=== PATIENT | male | born 1995 | race Caucasian/White ===

== ENCOUNTER 2019-05-13 06:31 | Outpatient (CLI) | payer OTHER, SELFPAY ==
--- NOTE | ~2019-05-13 | MR_ITS ---
EXAMINATION: MR brain/brain stem wo con DATE: 05/13/2019 07:26 INDICATION: Headache. TECHNIQUE: Magnetic resonance imaging (MRI) of the brain and brainstem was performed without intraven ous contrast. Sequences included sagittal and axial T1-weighted FSE, axial diffusion-weighted FS EPI, axial T2*-weighted GRE, axial T2-weighted FLAIR Propeller, and axial T2-weighted Propeller. Apparent diffusion coefficient (ADC) maps were created. COMPARISON: Brain MRI 12/23/2011 FINDINGS: There is no intracranial hemorrhage, acute infarction, or abnormal intracranial mass lesion . The ventricles are normal in size. The orbits are normal. The paranasal sinuses are clear. The mast oid air cells are normal. IMPRESSION: 1. Normal brain. Reviewed, dictated and finalized at location A. ROBE ASSISTANT IMPRESSION: 1. Normal brain.
== END 2019-05-13 06:32 | disposition home or self-care (01) ==
PROVIDERS: PCP Internal Medicine; Visit Provider Physician Assistant
DX: R51 Headache (principal)
CPT/HCPCS: 70551

== ENCOUNTER 2019-05-22 12:36 | Inpatient (IN) | payer OTHER, SELFPAY ==
[2019-05-22] VITALS (8 sets, daily range): BP systolic 98–132; BP diastolic 57–87; PULSE 76–120; RESP 16–18; TEMP 36.1–37.1; O2SAT 97–100; BMI 29.5
--- NOTE | ~2019-05-22 | CT_ITS ---
EXAMINATION: CT abdomen pelvis w con DATE: 05/22/2019 14:12 INDICATION: Nausea and vomiting. Abdominal pain. Blood in stool. TECHNIQUE: Computed tomography (CT) of the abdomen and pelvis was performed with 100 mL Omnipaque 350 intravenous contrast. Automated exposure control and iterative reconstruction technique were employe d. The dose-length product was 591.36 mGy-cm. COMPARISON: None. FINDINGS: The visualized portions of the lung bases are clear without pneumonia or pleural effusion. The heart size is normal. No pericardial effusion. The liver, gallbladder, spleen, pancreas, adrenal glands, and kidneys are normal. There is a small left inguinal hernia containing fat. There are no di lated loops of bowel. The appendix is normal. There are no pathologically enlarged lymph nodes. There is no free intraperitoneal fluid. There are Schmorl's nodes at all included levels of the spine. IMPRESSION: 1. Small left inguinal hernia containing fat. Reviewed, dictated and finalized at location A. EVEL PROVIDER
[2019-05-22 13:28] LABS: Basophils Absolute Auto 0.1 K/mm3 (0.0-0.1); Basophils Percent Auto 0.9 % (0.2-1.2); Eosinophils Percent Auto 0.3 % (0-4.4); Hematocrit 31.7 % (42.0-52.0); Immature Granulocyte Absolute 0.06 K/mm3 (0.00-0.031); Immature Granulocyte Percent A 0.5 % (0-0.5); Lymphocytes Absolute Auto 2.32 K/mm3 (0.9-3.2); Lymphocytes Percent Auto 17.4 % (18.3-44.2); Mean Corpuscular HGB Conc 34.7 g/dl (32-36); Mean Corpuscular Hemoglobin 28.6 pg (26-34); Mean Corpuscular Volume 82.3 fl (80-100); Mean Platelet Volume 10.4 fl (7.4-10.4); Monocytes Absolute Auto 0.6 K/mm3 (0.1-0.6); Monocytes Percent Auto 4.4 % (2.6-8.5); Neutrophils Absolute Auto 10.2 K/mm3 (1.3-6.7); Neutrophils Percent Auto 76.5 % (45.5-73.1); Platelet Count Result 339 k/mm3 (150-375); Red Blood Count 3.85 M/mm3 (4.6-6.20); Red Cell Distribution Width 12.1 % (11.5-14.5); White Blood Count 13.3 K/mm3 (4.5-10.0)
[2019-05-22 13:40] LABS: Alanine Aminotransferase 35 U/L (4-50); Albumin Level 4.5 g/dL (3.5-5.1); Alkaline Phosphatase 48 U/L (38-126); Aspartate Amino Transferase 21 U/L (17-59); Bilirubin,Total 0.4 mg/dL (0.2-1.3); Blood Urea Nitrogen 24 mg/dL (9-20); Calcium 9.2 mg/dL (8.4-10.2); Carbon Dioxide 26 mmol/L (22-30); Chloride 103 mmol/L (98-107); Estimated CRCL calculation 127 ml/min; Estimated Glomerular Filt Rate > 60; Glucose 116 mg/dL (75-110); Potassium 4.5 mmol/L (3.4-5.0); Sodium 139 mmol/L (137-145)
[2019-05-22 13:43] LABS: Partial Thromboplastin Time 24.1 SECONDS (22.3-36.8)
[2019-05-22] MEDS: LACTATED RINGERS 1,000 ML 999 ML IV CONT (13:52)
[2019-05-22] MEDS: PANTOPRAZOLE SODIUM IV 40 MG VIAL IV PUSH ×2 (13:53→20:24)
[2019-05-22] MEDS: ONDANSETRON INJ 4 MG/2 ML VIAL IV PUSH (13:53)
--- NOTE | 2019-05-22 14:00 | ED.ABDPAIN ---
HPI - Abdominal Pain General Chief Complaint: GI Bleed <Israel Anguiano PA-C Last Filed: 05/22/19 15:49> Stated Complaint: Headache/vomiting <CECILE Ervin Last Filed: 05/22/19 15:49> Time Seen by Provider: 05/22/19 12:39 <CECILE Ervin Last Filed: 05/22/19 15:49> Source: patient <Israel CECILE Duggan Last Filed: 05/22/19 15:49> Mode of arrival: ambulatory <CECILE Ervin Last Filed: 05/22/19 15:49> Limitations: no limitations <Israel Anguiano PA-C Last Filed: 05/22/19 15:49> History of Present Illness HPI narrative: Patient is a 23-year-old male who presents to emergency department for evaluation of upper respiratory symptoms that began over the course the last 3 to 4 days with vomiting and loose stools patient notes over the last several days he has had melanotic stools patient denies any belly pain patient has been taking some ibuprofen off and on for headaches which his primary care doctor is been evaluating him for. On arrival patient denying any pain notes that this morning the symptoms are worse with nausea and vomiting and diarrhea. Patient notes chills sweats. Patient denies similar occurrence in the past. On arrival to emergency department patient resting comfortably in the room in no distress. Patient notes that he does get lightheaded and dizzy with position change <Israel Anguiano PA-C Last Filed: 05/22/19 15:49> Related Data Allergies/Adverse Reactions: Allergies Allergy/AdvReac Type Severity Reaction Status Date / Time ibuprofen AdvReac Severe bleeding Verified 06/10/19 14:06 ulcer <Israel Anguiano PA-C Last Filed: 05/22/19 15:49> Review of Systems Review of Systems: All systems reviewed & are unremarkable except as noted in HPI and below <CECILE Ervin Last Filed: 05/22/19 15:49> PMFSH Past Medical History Medical History: Medical History No significant medical problems <CECILE Ervin Last Filed: 05/22/19 15:49> Surgical History Surgical History: Surgical History History of ear surgery Multiple ear surgeries including eardrum reconstruction bilaterally and several tube placements. History of surgery on arm Right arm surgery x4 after open fracture as a child. <Israel Anguiano PA-C - Last Filed: 05/22/19 15:49> Family History Family History: Family History Father Family history of cardiovascular disease Hypertension CAD (coronary artery disease) Mother Hypertension <Israel Anguiano PA-C - Last Filed: 05/22/19 15:49> Social History Social History: Social History Social History: The patient lives in [place] with his parents. He does auto body repair. He designates his mother, Alexandrea, as his surrogate decision maker and he wishes to be a full code. He is a lifelong nonsmoker and denies alcohol and drug abuse. Spiritual care concerns: No Agree to blood products: Yes <Israel Anguiano PA-C - Last Filed: 05/22/19 15:49> Exam Narrative: Exam Narrative: GENERAL: Ill-appearing, well-nourished, and in no acute distress. HEAD: Normocephalic, atraumatic. EYES: PERRLA and EOMI. ENT: Nares clear, no rhinorrhea or epistaxis. Mucous membranes moist. Oropharynx without tonsillar hypertrophy exudate or other lesions. NECK: Supple. No adenopathy or masses. CHEST: Clear to auscultation. No respiratory distress. No wheezes rales or rhonchi HEART: Regular rate and rhythm. No murmur heard. Normal peripheral pulses. ABDOMEN: Soft, nontender, nondistended EXTREMITIES: Normal range of motion. No edema. SKIN: Warm, dry, no rash. NEURO: No focal deficits. Alert and oriented x3. Cranial nerves II through XII grossly inta
[2019-05-22 15:14] LABS: Lactic Acid Reflex 1.1 mmol/L (0.7-2.1)
[2019-05-22] MEDS: SODIUM CHLORIDE 0.9% IV 1,000 ML 999 ML IV CONT (15:29)
[2019-05-22 16:15] LABS: Hematocrit 26.3 % (42.0-52.0); Hemoglobin 9.1 g/dL (14.0-18.0)
[2019-05-22] MEDS: LACTATED RINGERS 1,000 ML 125 ML IV CONT (16:51)
--- NOTE | 2019-05-22 18:37 | WPDGICN ---
Assessment and Plan Assessment and plan (1) Melena: Code(s): K92.1 - Melena Status: Acute Assessment and Plan: he had near syncope with symptomatic gib, will keep npo and proceed with EGD in the morning- most likely bleeding ulcer. continue with high dose ppi bid, avoid nsaid's or aspirin (2) Acute blood loss anemia: Code(s): D62 - Acute posthemorrhagic anemia Status: Acute Assessment and Plan: monitor hb and transfuse if <7 (3) Coffee ground emesis: Code(s): K92.0 - Hematemesis Status: Acute Assessment and Plan: supportive care, iv fluids, monitor (4) Vertigo: Code(s): R42 - Dizziness and giddiness Status: Acute Assessment and Plan: probably from gib, mri brain negative GI Consult Note Consult date/time: 05/22/19 18:37 Reason for consult: melena HPI: Stiven Mcleod is a 23 year old male with lightheadedness and headache for almost 3 weeks for which he has seen his primary and had MRI brain recently that was normal. He has been nauseous and had coffee ground emesis, also diarrhea that was dark consistent with melena, he almost passed out when he was vomiting and dry heaving. He has taken ibuprofen 2-3 times a week for headache, never had EGD. Blood work showed hb 11 dropped to 9, bun 24. Started on iv protonix now, hemodynamically stable. Review of Systems Constitutional: Constitutional: Reports fatigue and Reports headache(s) Eyes: Eyes: Denies blurry vision ENT: Reports Normal hearing present, Denies headache(s) and Denies neck pain Cardiovascular: Cardiovascular: Denies chest pain and Denies dyspnea Respiratory: Respiratory: Denies dyspnea Gastrointestinal: Gastrointestinal: Reports melena, Reports nausea and Reports vomiting Genitourinary: Genitourinary: Denies dysuria Musculoskeletal: Musculoskeletal: Denies neck pain Integumentary/Breasts: Skin/Breast: Denies dry skin Neurologic: Reports Normal hearing present, Reports vertigo and Reports dizziness Psychiatric: Psychiatric: Denies anxiety Endocrine: Endocrine: Denies change in body appearance Hematologic/Lymphatic: Hematologic/Lymphatic: Denies easy bleeding Allergic/Immunologic: Allergic/Immunologic: Denies urticaria PMFSH Past Medical History Medical History (Updated 05/22/19 @ 18:42 by Timmy Merrill MD) Acute blood loss anemia Coffee ground emesis Melena Vertigo Surgical History Surgical History (Updated 05/22/19 @ 14:03 by Israel Anguiano PA-C) History of ear surgery Family History Family History (Updated 05/22/19 @ 16:47 by Alea Arredondo RN) Father Family history of cardiovascular disease Hypertension CAD (coronary artery disease) Mother Hypertension Social History Social History Smoking status: Never smoker Second hand tobacco smoke exposure: No Alcohol intake: never Substance use: never Gender identity (if verbalized by the patient): Male Spiritual care concerns: No Agree to blood products: Yes Meds Home Medications and Allergies Home Medications Medication Instructions Recorded Confirmed Type No Home Medications 05/12/19 05/22/19 History Allergies Allergy/AdvReac Type Severity Reaction Status Date / Time No Known Allergies Allergy Verified 05/12/19 16:18 Vital Signs Vital Signs - 24 hr 05/22/19 13:14 05/22/19 15:17 05/22/19 15:18 Temperature 97 F L Pulse Rate 120 H 89 116 H Respiratory Rate 18 Blood Pressure 112/87 118/64 106/82 Pulse Oximetry 100 05/22/19 15:20 05/22/19 15:59 05/22/19 16:30 Temperature Pulse Rate 112 H 91 84 Respiratory Rate 17 16 Blood Pressure 98/82 L 118/71 113/78 Pulse Oximetry 100 99 05/22/19 17:08 Temperature 98.6 F Pulse Rate 84 Respiratory Rate 18 Blood Pressure 132/72 Pulse Oximetry 100 Exam Const: General: comfortable and no acute distress HENMT:
--- NOTE | 2019-05-22 20:00 | PM.IMHP ---
H&P: HPI History of Present Illness Chief complaint: Bloody stools, vomiting, headache. Narrative: Stiven Mcleod is a pleasant, previously healthy 23-year-old male who presented to the emergency department earlier this afternoon from home for evaluation of bloody stools, vomiting, and headache. For approximately 1 months time he has had vertigo (describes the room spinning) occasionally associated with nausea and vomiting. He was seen by his primary care provider and a subsequent brain MRI came back unremarkable. He has also been having intermittent headaches for which he has been taking 600 milligrams of ibuprofen perhaps 2 times per week. Apparently he has had longstanding issues with his ears, and has been referred to an ENT with an upcoming appointment in the next week or so. In any regard, last evening he developed significant nausea and had several episodes of emesis that he describes to me as bright yellow in color. It is been documented by other providers, however, that he had coffee-ground emesis but he adamantly denies that to me. He has since been having dry heaves as he has not had anything to eat or drink since that time. This morning he had innumerable bouts of diarrhea that were dark in color. The patient snapped a photo of his stool and sent it to his mother, who reports that it was consistent with melena. She encouraged him to come to the emergency department today after he told her that he nearly collapsed today due to profound weakness. With further questioning, he does mention that his stools have been dark for several days, although they were not loose until today. With further questioning, he does mention an increase in belching and notes that he has vomited 2 to 3 times per week over the last month or so, mainly in the evening and at night. Interestingly, he has not had any epigastric or abdominal discomfort and specifically denies symptoms of GERD and indigestion. He believes he drinks the average amount of caffeine, typically either Dr. Pepper or iced tea. He denies significant alcohol use. No increase in stress recently. No chest pain or shortness of breath. Review of Systems Review of Systems: All systems reviewed & are unremarkable except as noted in HPI and below PMFSH Past Medical History Medical History (Updated 05/22/19 @ 23:01 by Trice Brito PA-C) No significant medical problems Surgical History Surgical History (Updated 05/22/19 @ 22:59 by Trice Brito PA-C) History of ear surgery Multiple ear surgeries including eardrum reconstruction bilaterally and several tube placements. History of surgery on arm Right arm surgery x4 after open fracture as a child. Family History Family History Father Family history of cardiovascular disease Hypertension CAD (coronary artery disease) Mother Hypertension Social History Social History (Updated 05/22/19 @ 23:00 by Trice Brito PA-C) Social History: The patient lives in [place] with his parents. He does auto body repair. He designates his mother, Alexandrea, as his surrogate decision maker and he wishes to be a full code. He is a lifelong nonsmoker and denies alcohol and drug abuse. Spiritual care concerns: No Agree to blood products: Yes Meds Home Medications and Allergies Home Medications Medication Instructions Recorded Confirmed Type No Home Medications 05/12/19 05/22/19 History Allergies Allergy/AdvReac Type Severity Reaction Status Date / Time No Known Allergies Allergy Verified 05/12/19 16:18 Vital Signs Vital Signs - 24 hr 05/22/19 13:14 05/22/19 15:17 05/22/19 15:18 Temperature 97 F L Pulse Rate 120 H 89 116 H Respiratory Rate 18 Blood Pressure 112/87 118/64 106/82 Pulse Oximetry 100 05/22/19 15:20 05/22/19 15:59 05/22/19 16:30 Temperature Pulse Rate 112 H 91 84 Respiratory Rate 17 16 Blood Pressure 98/
[2019-05-22 21:35] LABS: Hematocrit 22.5 % (42.0-52.0)
[2019-05-23] VITALS (9 sets, daily range): BP systolic 102–146; BP diastolic 42–87; PULSE 81–97; RESP 16–18; TEMP 36.6–37.1; O2SAT 96–100
[2019-05-23] MEDS: LACTATED RINGERS 1,000 ML 90 ML IV CONT ×2 (01:45→14:48)
[2019-05-23] MEDS: ACETAMINOPHEN 325 MG TABLET 650 MG PO ×2 (01:45→09:13)
[2019-05-23 01:47] LABS: Hemoglobin 7.7 g/dL (14.0-18.0)
[2019-05-23 06:51] LABS: Basophils Absolute Auto 0.1 K/mm3 (0.0-0.1); Basophils Percent Auto 0.8 % (0.2-1.2); Eosinophils Absolute Auto 0.2 K/mm3 (0-0.3); Eosinophils Percent Auto 2.3 % (0-4.4); Hematocrit 21.8 % (42.0-52.0); Hemoglobin 7.5 g/dL (14.0-18.0); Immature Granulocyte Absolute 0.03 K/mm3 (0.00-0.031); Immature Granulocyte Percent A 0.4 % (0-0.5); Lymphocytes Percent Auto 30.3 % (18.3-44.2); Mean Corpuscular HGB Conc 34.4 g/dl (32-36); Mean Corpuscular Hemoglobin 29.3 pg (26-34); Mean Corpuscular Volume 85.2 fl (80-100); Mean Platelet Volume 10.9 fl (7.4-10.4); Monocytes Absolute Auto 0.5 K/mm3 (0.1-0.6); Monocytes Percent Auto 6.9 % (2.6-8.5); Neutrophils Absolute Auto 4.3 K/mm3 (1.3-6.7); Neutrophils Percent Auto 59.3 % (45.5-73.1); Platelet Count Result 223 k/mm3 (150-375); Red Blood Count 2.56 M/mm3 (4.6-6.20); Red Cell Distribution Width 12.7 % (11.5-14.5); White Blood Count 7.3 K/mm3 (4.5-10.0)
[2019-05-23 07:15] LABS: Blood Urea Nitrogen 14 mg/dL (9-20); Calcium 8.4 mg/dL (8.4-10.2); Carbon Dioxide 25 mmol/L (22-30); Chloride 103 mmol/L (98-107); Estimated CRCL calculation 127 ml/min; Estimated Glomerular Filt Rate > 60; Glucose 93 mg/dL (75-110); Potassium 3.8 mmol/L (3.4-5.0); Sodium 137 mmol/L (137-145)
[2019-05-23] MEDS: LACTATED RINGERS 1,000 ML 150 ML IV CONT (07:29)
--- NOTE | 2019-05-23 07:30 | WPDANESEPPF ---
Anes - Initial Pre Proc Eval Procedure: Operation Date: 05/23/19 07:30 Proposed Procedures p Esophagogastroduodenoscopy - Timmy Merrill MD Date/Time: 05/23/19 08:37 Surgeon: Anel Pre Op Diagnosis: GI Bleed Pre Op Diagnosis: Bloody stools, vomiting, headache. Patient Data Age: 23 Gender: M Height: 5 ft 9 in Weight: 90.9 kg Last Vital Signs Temp 36.9 C 05/23/19 07:26 Pulse 97 05/23/19 08:22 Resp 16 05/23/19 08:22 BP 120/52 L 05/23/19 08:22 Pulse Ox 100 05/23/19 08:22 Allergies Allergy/AdvReac Type Severity Reaction Status Date / Time No Known Allergies Allergy Verified 05/23/19 07:23 Home Medications Medication Instructions Recorded Confirmed Type No Home Medications 05/12/19 05/23/19 History Laboratory Tests 05/22/19 05/22/19 05/22/19 13:20 13:20 13:20 WBC 13.3 K/mm3 H K/mm3 (4.5-10.0) RBC 3.85 M/mm3 L M/mm3 (4.6-6.20) Hgb 11.0 g/dL L g/dL (14.0-18.0) Hct 31.7 % L % (42.0-52.0) MCV 82.3 fl fl (80-100) MCH 28.6 pg pg (26-34) MCHC 34.7 g/dl g/dl (32-36) RDW 12.1 % % (11.5-14.5) Plt Count 339 k/mm3 k/mm3 (150-375) MPV 10.4 fl fl (7.4-10.4) Immature Gran % (Auto) 0.5 % % (0-0.5) Neut % (Auto) 76.5 % H % (45.5-73.1) Lymph % (Auto) 17.4 % L % (18.3-44.2) Garza % (Auto) 4.4 % % (2.6-8.5) Eos % (Auto) 0.3 % % (0-4.4) Baso % (Auto) 0.9 % % (0.2-1.2) Lymph # (Auto) 2.32 K/mm3 K/mm3 (0.9-3.2) Garza # (Auto) 0.6 K/mm3 K/mm3 (0.1-0.6) Eos # (Auto) 0.0 K/mm3 K/mm3 (0-0.3) Baso # (Auto) 0.1 K/mm3 K/mm3 (0.0-0.1) Abs Immat Gran (auto) 0.06 K/mm3 H K/mm3 (0.00-0.031) Absolute Neuts (auto) 10.2 K/mm3 H K/mm3 (1.3-6.7) Absolute Nucleated RBC 0.0 K/mm3 K/mm3 (0.0-0.012) Nucleated RBC % 0.0 % % (0.0-0.2) PT 13.0 Seconds Seconds (11.1-14.7) INR 1.0 APTT 24.1 SECONDS SECONDS (22.3-36.8) Sodium 139 mmol/L mmol/L (137-145) Potassium 4.5 mmol/L mmol/L (3.4-5.0) Chloride 103 mmol/L mmol/L (98-107) Carbon Dioxide 26 mmol/L mmol/L (22-30) BUN 24 mg/dL H mg/dL (9-20) Creatinine 0.80 mg/dL mg/dL (0.7-1.3) Estim Creat Clear Calc 127 ml/min ml/min Estimated GFR > 60 (59 - ) Glucose 116 mg/dL H mg/dL (75-110) Lactic Acid Calcium 9.2 mg/dL mg/dL (8.4-10.2) Total Bilirubin 0.4 mg/dL mg/dL (0.2-1.3) AST 21 U/L U/L (17-59) ALT 35 U/L U/L (4-50) Alkaline Phosphatase 48 U/L U/L (38-126) Total Protein 7.0 g/dL g/dL (6.3-8.2) Albumin 4.5 g/dL g/dL (3.5-5.1) Blood Type Antibody Screen 05/22/19 05/22/19 05/22/19 13:20 14:33 14:52 WBC RBC Hgb 9.1 g/dL L g/dL (14.0-18.0) Hct 26.3 % L % (42.0-52.0) MCV MCH MCHC RDW Plt Count MPV Immature Gran % (Auto) Neut % (Auto) Lymph % (Auto) Garza % (Auto) Eos % (Auto) Baso % (Auto) Lymph # (Auto) Garza # (Auto) Eos # (Auto) Baso # (Auto) Abs Immat Gran (auto) Absolute Neuts (auto) Absolute Nucleated RBC Nucleated RBC % PT INR APTT Sodium Potassium Chloride Carbon Dioxide BUN Creatinine Estim Creat Clear Calc Estimated GFR Glucose Lactic Acid 1.1 mmol/L mmol/L (0.7-2.1)
--- NOTE | 2019-05-23 07:50 | PM.IMPN ---
Progress Note: A&P Assessment and Plan (1) GI bleed: Code(s): K92.2 - Gastrointestinal hemorrhage, unspecified Status: Acute Assessment and Plan: Presumably upper GI bleed given melena. continue Protonix b.i.d. Plans for EGD in a.m. per Dr. Teran. (2) Acute blood loss anemia: Code(s): D62 - Acute posthemorrhagic anemia Status: Acute Assessment and Plan: Secondary to GI bleed. transfuse with a hgb of less than [address] Teran. Continue to closely monitor hgb (3) Vertigo: Code(s): R42 - Dizziness and giddiness Status: Acute Assessment and Plan: This has been an ongoing issue for at least 1 month. May very well be due to history of ear problems (no otoscope available at the time my exam). Unlikely that the vertigo is related to the blood loss, which just started in the last several days. Certainly that could be exacerbating his symptoms, however. Subjective Date/time seen: 05/23/19 07:50 patient admitted for bloody stool, vomiting, headache, nausea and dark colored. Endoscopy completed today by Dr. Teran. Patient does complain of right lower quadrant pain and sore throat post scope. He also continues to complain of dark stool and a persistent headache. Patient denies SOB, CP, palpitation, extremity numbness, lightheadness, dizziness, constipation, , or chills or fever. Patient will stay 1 more night to monitor his hemoglobin and hematocrit. He did not sleep well overnight I will give him asleep and pain medication. Review of Systems Constitutional: Constitutional: Reports difficulty sleeping ENT: Reports sore throat (Post EGD) Cardiovascular: Cardiovascular: Reports no additional cardiovascular complaints, Denies chest pain at rest, Denies dyspnea, Denies dyspnea on exertion and Denies orthopnea Respiratory: Respiratory: Reports no additional respiratory complaints, Denies hemoptysis, Denies pain with cough, Denies dyspnea and Denies dyspnea on exertion Gastrointestinal: Gastrointestinal: Reports melena, Denies nausea, Denies vomiting and Denies hematemesis Genitourinary: Genitourinary: Reports no additional male genitourinary complaints Musculoskeletal: Musculoskeletal: Reports no additional musculoskeletal complaints and Denies arthralgias Integumentary/Breasts: Skin/Breast: Reports system reviewed and no additional complaints, except as docu Neurologic: Denies Abnormal speech present, Denies confusion and Reports headache(s) Exam Const: General: cooperative, healthy appearing, comfortable and no acute distress Orientation/consciousness: patient oriented x3 Resp: Effort & Inspection: normal respiratory effort Auscultation: clear to auscultation bilaterally Cardio: Jugular venous distension: no JVD Rate: regular rate Peripheral pulses: Peripheral pulses 2+ throughout GI: Inspection: normal to inspection GI Palp: Yes abdominal tenderness (Right lower quad) : General: Yes bimanual renal exam normal bilaterally Neuro: General: oriented to person Cognition (Neuro): normal cognition Objective Data Vital Signs Vital Signs: Vital Signs - 24 hr 05/22/19 13:14 05/22/19 15:17 05/22/19 15:18 Temperature 36.1 C L Pulse Rate 120 H 89 116 H Respiratory Rate 18 Blood Pressure 112/87 118/64 106/82 Pulse Oximetry 100 05/22/19 15:20 05/22/19 15:59 05/22/19 16:30 Temperature Pulse Rate 112 H 91 84 Respiratory Rate 17 16 Blood Pressure 98/82 L 118/71 113/78 Pulse Oximetry 100 99 05/22/19 17:08 05/22/19 21:43 05/23/19 06:00 Temperature 37.0 C 37.1 C 36.8 C Pulse Rate 84 76 92 Respiratory Rate 18 18 18 Blood Pressure 132/72 132/57 L 104/64 Pulse Oximetry 100 97 99 05/23/19 07:26 Temperature 36.9 C Pulse Rate 92 Respiratory Rate 16 Blood Pressure 127/63 Pulse Oximetry 100 Intake/Output Intake/Output: Intake & Output 05/20/19 05/21/19 05/22/19 05/23/19 23:59 23:59 23:59 23:59
[2019-05-23] MEDS: EPINEPHrine INJ 1 MG/10 ML SYRINGE 8 MG XX (08:03)
[2019-05-23] MEDS: PANTOPRAZOLE SODIUM IV 40 MG VIAL IV PUSH ×2 (09:13→20:17)
[2019-05-23 10:19] LABS: Hematocrit 21.9 % (42.0-52.0); Hemoglobin 7.8 g/dL (14.0-18.0)
[2019-05-23] MEDS: ONDANSETRON INJ 4 MG/2 ML VIAL IV PUSH ×2 (11:12→17:35)
[2019-05-23] MEDS: TRAMADOL HCL 50 MG TABLET PO (17:34)
[2019-05-23 20:45] LABS: Hematocrit 20.5 % (42.0-52.0)
[2019-05-24] VITALS (8 sets, daily range): BP systolic 103–140; BP diastolic 51–74; PULSE 80–96; RESP 16–18; TEMP 36.3–37.1; O2SAT 97–100
[2019-05-24] MEDS: TRAMADOL HCL 50 MG TABLET PO ×3 (02:10→21:52)
[2019-05-24] MEDS: LACTATED RINGERS 1,000 ML 90 ML IV CONT ×2 (02:11→17:23)
[2019-05-24 06:10] LABS: Mean Corpuscular Hemoglobin 28.9 pg (26-34); Mean Corpuscular Volume 84.9 fl (80-100); Mean Platelet Volume 10.4 fl (7.4-10.4); Platelet Count Result 198 k/mm3 (150-375); Red Blood Count 2.39 M/mm3 (4.6-6.20); Red Cell Distribution Width 12.8 % (11.5-14.5); White Blood Count 6.7 K/mm3 (4.5-10.0)
[2019-05-24 06:13] LABS: Hemoglobin 6.9 g/dL (14.0-18.0)
[2019-05-24 06:14] LABS: Hematocrit 20.3 % (42.0-52.0)
[2019-05-24 06:23] LABS: Blood Urea Nitrogen 6 mg/dL (9-20); Calcium 8.3 mg/dL (8.4-10.2); Carbon Dioxide 28 mmol/L (22-30); Chloride 104 mmol/L (98-107); Estimated CRCL calculation 127 ml/min; Estimated Glomerular Filt Rate > 60; Glucose 92 mg/dL (75-110); Potassium 3.6 mmol/L (3.4-5.0); Sodium 137 mmol/L (137-145)
[2019-05-24] MEDS: ONDANSETRON INJ 4 MG/2 ML VIAL IV PUSH ×4 (07:29→21:58)
[2019-05-24] MEDS: SODIUM CHLORIDE 0.9% IV 250 ML 30 ML IV CONT (08:23)
[2019-05-24] MEDS: PANTOPRAZOLE SODIUM IV 40 MG VIAL IV PUSH ×2 (08:23→21:52)
--- NOTE | 2019-05-24 11:47 | WPDGIPROGNO ---
Progress Note: A&P Assessment and Plan (1) Duodenal ulcer with hemorrhage: Code(s): K26.4 - Chronic or unspecified duodenal ulcer with hemorrhage Status: Acute Assessment and Plan: treated endoscopically yesterday, continue with iv ppi bid and avoid nsaid's pending bx (rule out h pylori) (2) Acute blood loss anemia: Code(s): D62 - Acute posthemorrhagic anemia Status: Acute Assessment and Plan: will give one unit of prbc, no more bleeding now. then will need iron po (3) Headache: Qualifiers: Headache type: unspecified Headache chronicity pattern: unspecified pattern Intractability: not intractable Qualified Code(s): R51 - Headache Code(s): R51 - Headache Status: Acute Assessment and Plan: his main complain now, avoid nsaid's, other analgesics by primary he has been having headache for 3-4 weeks, mri brain negative (4) GI bleed: Qualifiers: GI bleed type/associated pathology: duodenal ulcer Qualified Code(s): K26.4 - Chronic or unspecified duodenal ulcer with hemorrhage Code(s): K92.2 - Gastrointestinal hemorrhage, unspecified Status: Acute (5) Coffee ground emesis: Code(s): K92.0 - Hematemesis Status: Acute (6) Melena: Code(s): K92.1 - Melena Status: Acute (7) Nausea and vomiting in adult: Code(s): R11.2 - Nausea with vomiting, unspecified Status: Acute Assessment and Plan: continue zofran prn, will add carafate to see if will help Subjective Date/time seen: 05/24/19 11:47 Interval history: no more melena but still with nauseous and vomiting however denies coffee ground. Hb 6.9 today, also complaining of headache Review of Systems Review of Systems: All systems reviewed & are unremarkable except as noted in HPI and below Exam Const: General: comfortable and no acute distress HENMT: General nose exam: Normal nares present Eyes: General: appearance normal, both eyes and all related structures Neck: Neck: no JVD Resp: Auscultation: clear to auscultation bilaterally Cardio: Rate: regular rate Rhythm: regular rhythm GI: Inspection: non-distended GI Palp: Yes Soft to palpation Skin: General skin exam: normal color Neuro: General: gait normal Speech: normal speech Extrem: General: normal to inspection Psych: Mental Status: mental status grossly normal Objective Data Vital Signs Vital Signs: Vital Signs - 24 hr 05/23/19 14:00 05/23/19 21:21 05/24/19 06:00 Temperature 98.6 F 98.7 F 98.5 F Pulse Rate 97 81 82 Respiratory Rate 16 16 16 Blood Pressure 114/54 L 102/42 L 115/59 L Pulse Oximetry 98 100 100 05/24/19 08:09 05/24/19 08:31 05/24/19 09:31 Temperature 98.7 F 97.4 F L 98.4 F Pulse Rate 96 86 80 Respiratory Rate 18 17 18 Blood Pressure 137/67 126/65 124/60 Pulse Oximetry 99 99 99 05/24/19 10:31 05/24/19 11:20 Temperature 98.1 F 98.1 F Pulse Rate 88 88 Respiratory Rate 18 18 Blood Pressure 135/62 140/67 Pulse Oximetry 99 98 Intake/Output Intake/Output: Intake & Output 05/21/19 05/22/19 05/23/19 05/24/19 23:59 23:59 23:59 23:59 Intake Total 1100 2610 1720 Output Total 0 550 Balance 1100 2060 1720 Meds/Results Medications: Active Medications Generic Name Dose Route Start Last Admin Trade Name Freq PRN Reason Stop Dose Admin Acetaminophen 1,000 mg 05/23/19 11:18 Tylenol Tablet PO Q6H PRN Mild Pain (1-3) or Fever Hydrocodone Bitart/Acetaminophen 1 tab 05/23/19 11:18 05/23/19 20:21 [place] 5-325 Mg PO 1 tab Q6H PRN Administration Pain Rated 7-10 Lactated Ringer's 1,000 mls @ 90 mls/hr 05/22/19 15:50 05/24/19 11:26 Lr - Lactated Ringers Iv IV CONT 90 mls/hr .Q11H7M BRIAN Infusion Sodium Chloride 250 mls @ 30 mls/hr 05/24/19 06:33 05/24/19 08:23 Normal Saline Iv IV CONT 05/24/19 14:52 30 mls/hr .Q8H20M STA Administration Acetaminophen 1,000 mg in 100 mls @
--- NOTE | 2019-05-24 11:52 | PM.IMPN ---
Progress Note: A&P Assessment and Plan (1) GI bleed: Qualifiers: GI bleed type/associated pathology: duodenal ulcer Qualified Code(s): K26.4 - Chronic or unspecified duodenal ulcer with hemorrhage Code(s): K92.2 - Gastrointestinal hemorrhage, unspecified Status: Acute Assessment and Plan: -----secondary to duodenal ulcers. Patient's hemoglobin is still low and now that he is dizzy and has a headache 1 unit of blood was transfused. We will see how he does with that. Hgb appears stable and will monitor. Continue protonix BID. Pt father had ulcers. h pylori bx pending (2) Acute blood loss anemia: Code(s): D62 - Acute posthemorrhagic anemia Status: Acute Assessment and Plan: -----Secondary to GI bleed. (3) Vertigo: Code(s): R42 - Dizziness and giddiness Status: Acute Assessment and Plan: -----This has been an ongoing issue for at least 1 month and worsend with this blood loss. MRI done outpatient that looked okay. may benefit from seeing ENT outpatient. (4) Duodenal ulcer with hemorrhage: Code(s): K26.4 - Chronic or unspecified duodenal ulcer with hemorrhage Status: Acute Assessment and Plan: -----see above. continue PPI and carafate. Time Spent With Patient Time with patient: 25 - 35 minutes Subjective Date/time seen: 05/24/19 11:52 Interval history: Patient is a 23-year-old male here for GI bleed with duodenal ulcers who was seen today. Mother at bedside during interview and exam. Patient states that his main complaint today is a headache with nausea. He says he feels weak when he gets up and a little tired. His nausea is preventing him from eating a ton. He has not had any more melena since yesterday but is going to try to have a bowel movement later today. He does feel little dizzy at times. He denies chest pain, shortness of breath, fevers, chills, vomiting or leg edema. Review of Systems Review of Systems: All systems reviewed & are unremarkable except as noted in HPI and below Exam Narrative: Exam Narrative: General: Well developed well nourished patient in NAD HEENT: normocephalic Neck: supple Neuro: Alert and oriented x4. Cranial nerves 2-12 intact. Equal strength upper lower extremities 5/5 CV:RRR Resp:CTA--was not taking deep breaths initially Abd: Soft, non distended. No pain to palpation. Positive bowel sounds Extremities: No swelling, erythema, or pain to palpation. Objective Data Vital Signs Vital Signs: Vital Signs - 24 hr 05/23/19 14:00 05/23/19 21:21 05/24/19 06:00 Temperature 98.6 F 98.7 F 98.5 F Pulse Rate 97 81 82 Respiratory Rate 16 16 16 Blood Pressure 114/54 L 102/42 L 115/59 L Pulse Oximetry 98 100 100 05/24/19 08:09 05/24/19 08:31 05/24/19 09:31 Temperature 98.7 F 97.4 F L 98.4 F Pulse Rate 96 86 80 Respiratory Rate 18 17 18 Blood Pressure 137/67 126/65 124/60 Pulse Oximetry 99 99 99 05/24/19 10:31 05/24/19 11:20 Temperature 98.1 F 98.1 F Pulse Rate 88 88 Respiratory Rate 18 18 Blood Pressure 135/62 140/67 Pulse Oximetry 99 98 Intake/Output Intake/Output: Intake & Output 05/21/19 05/22/19 05/23/19 05/24/19 23:59 23:59 23:59 23:59 Intake Total 1100 2610 1720 Output Total 0 550 Balance 1100 2060 1720 Meds/Results Medications: Active Medications Generic Name Dose Route Start Last Admin Trade Name Freq PRN Reason Stop Dose Admin Acetaminophen 1,000 mg 05/23/19 11:18 Tylenol Tablet PO Q6H PRN Mild Pain (1-3) or Fever Hydrocodone Bitart/Acetaminophen 1 tab 05/23/19 11:18 05/23/19 20:21 [place] 5-325 Mg PO 1 tab Q6H PRN Administration Pain Rated 7-10 Lactated Ringer's 1,000 mls @ 90 mls/hr 05/22/19 15:50 05/24/19 11:26 Lr - Lactated Ringers Iv IV CONT 90 mls/hr .[id number] BRIAN Infusion Sodium Chloride 250 mls @ 30 mls/hr 05/24/19 06:33 05/24/19 08:23 Normal Saline Iv IV CONT
[2019-05-24 12:42] LABS: Hematocrit 24.6 % (42.0-52.0); Hemoglobin 8.3 g/dL (14.0-18.0)
[2019-05-24] MEDS: SUCRALFATE SUSP 100 MG/ML 10 ML UDC 1000 MG PO ×2 (15:55→21:52)
[2019-05-25] VITALS (10 sets, daily range): BP systolic 123–138; BP diastolic 58–76; PULSE 76–110; RESP 16–18; TEMP 36.6–37.7; O2SAT 96–100
[2019-05-25] MEDS: LACTATED RINGERS 1,000 ML 90 ML IV CONT (04:02)
[2019-05-25] MEDS: TRAMADOL HCL 50 MG TABLET PO ×3 (04:02→17:19)
[2019-05-25 06:38] LABS: Blood Urea Nitrogen 6 mg/dL (9-20); Calcium 8.3 mg/dL (8.4-10.2); Carbon Dioxide 28 mmol/L (22-30); Chloride 102 mmol/L (98-107); Estimated CRCL calculation 144 ml/min; Estimated Glomerular Filt Rate > 60; Glucose 98 mg/dL (75-110); Potassium 3.4 mmol/L (3.4-5.0); Sodium 136 mmol/L (137-145)
[2019-05-25] MEDS: SUCRALFATE SUSP 100 MG/ML 10 ML UDC 1000 MG PO ×4 (06:44→21:30)
--- NOTE | 2019-05-25 09:05 | WPDGIPROGNO ---
Progress Note: A&P Assessment and Plan (1) Duodenal ulcer with hemorrhage: Code(s): K26.4 - Chronic or unspecified duodenal ulcer with hemorrhage Status: Acute Assessment and Plan: treated endoscopically, continue with iv ppi bid and avoid nsaid's rapid karol-test negative for H pylori, awaiting on final biopsy (2) Acute blood loss anemia: Code(s): D62 - Acute posthemorrhagic anemia Status: Acute Assessment and Plan: appropriate response after 1 unit of prbc will need iron supplement monitor for signs of bleeding (3) Headache: Qualifiers: Headache chronicity pattern: unspecified pattern Headache type: unspecified Intractability: not intractable Qualified Code(s): R51 - Headache Code(s): R51 - Headache Status: Acute Assessment and Plan: by primary team, do not use nsaid's he is having persistent headache now mri brain negative (4) GI bleed: Qualifiers: GI bleed type/associated pathology: duodenal ulcer Qualified Code(s): K26.4 - Chronic or unspecified duodenal ulcer with hemorrhage Code(s): K92.2 - Gastrointestinal hemorrhage, unspecified Status: Acute (5) Coffee ground emesis: Code(s): K92.0 - Hematemesis Status: Acute (6) Melena: Code(s): K92.1 - Melena Status: Acute (7) Nausea and vomiting in adult: Code(s): R11.2 - Nausea with vomiting, unspecified Status: Acute Assessment and Plan: better with ppi and carafate, will advance his diet Subjective Date/time seen: 05/25/19 09:05 Interval history: no more nausea and he is tolerating liquid diet, no more bleeding. His main issue is persistent headache, he says that tramadol is not working Review of Systems Constitutional: Constitutional: Denies headache(s) and Denies weakness Eyes: Eyes: Denies blurry vision ENT: Reports Normal hearing present, Denies headache(s) and Denies neck pain Cardiovascular: Cardiovascular: Denies chest pain and Denies dyspnea Respiratory: Respiratory: Denies dyspnea Gastrointestinal: Gastrointestinal: Reports no additional gastrointestinal complaints Genitourinary: Genitourinary: Denies dysuria Musculoskeletal: Musculoskeletal: Denies neck pain Integumentary/Breasts: Skin/Breast: Denies dry skin Neurologic: Reports Normal hearing present, Reports headache(s) and Denies weakness Psychiatric: Psychiatric: Denies anxiety Endocrine: Endocrine: Denies change in body appearance Hematologic/Lymphatic: Hematologic/Lymphatic: Denies easy bleeding Allergic/Immunologic: Allergic/Immunologic: Denies urticaria Exam Const: General: comfortable and no acute distress HENMT: General nose exam: Normal nares present Eyes: General: appearance normal, both eyes and all related structures Neck: Neck: no JVD Resp: Auscultation: clear to auscultation bilaterally Cardio: Rate: regular rate Rhythm: regular rhythm GI: Inspection: non-distended GI Palp: Yes Soft to palpation Skin: General skin exam: normal color Neuro: General: gait normal Speech: normal speech Extrem: General: normal to inspection Psych: Mental Status: mental status grossly normal Objective Data Vital Signs Vital Signs: Vital Signs - 24 hr 05/24/19 09:31 05/24/19 10:31 05/24/19 11:20 Temperature 98.4 F 98.1 F 98.1 F Pulse Rate 80 88 88 Respiratory Rate 18 18 18 Blood Pressure 124/60 135/62 140/67 Pulse Oximetry 99 99 98 05/24/19 14:00 05/24/19 22:00 05/25/19 06:00 Temperature 98.2 F 98.2 F 98.1 F Pulse Rate 89 82 76 Respiratory Rate 18 18 18 Blood Pressure 139/74 103/51 L 124/62 Pulse Oximetry 97 98 98 Intake/Output Intake/Output: Intake & Output 05/22/19 05/23/19 05/24/19 05/25/19 23:59 23:59 23:59 23:59 Intake Total 1100 2610 3310 2100 Output Total 0 550 Balance 1100 2060 3310 2100 Meds/Results Medications: Active Medications Generic Name Dose Route Start Last Admin Tra
[2019-05-25] MEDS: ONDANSETRON INJ 4 MG/2 ML VIAL IV PUSH (09:06)
[2019-05-25] MEDS: PANTOPRAZOLE SODIUM IV 40 MG VIAL IV PUSH ×2 (09:06→21:30)
[2019-05-25 10:12] LABS: Hematocrit 23.4 % (42.0-52.0); Hemoglobin 8.1 g/dL (14.0-18.0)
--- NOTE | 2019-05-25 14:15 | PM.IMPN ---
Progress Note: A&P Assessment and Plan (1) GI bleed: Qualifiers: GI bleed type/associated pathology: duodenal ulcer Qualified Code(s): K26.4 - Chronic or unspecified duodenal ulcer with hemorrhage Code(s): K92.2 - Gastrointestinal hemorrhage, unspecified Status: Acute Assessment and Plan: -----secondary to duodenal ulcers. Patient is steady at 8.1 today but he appears symptomatic as he still lightheaded, dizzy, and his heart race when he sits up or walks to the bathroom. For this reason I will give him another unit of blood. Continue to monitor hemoglobin. Continue protonix BID. Pt father had ulcers. h pylori bx pending (2) Acute blood loss anemia: Code(s): D62 - Acute posthemorrhagic anemia Status: Acute Assessment and Plan: -----Secondary to GI bleed. Iron started today (3) Vertigo: Code(s): R42 - Dizziness and giddiness Status: Acute Assessment and Plan: -----This has been an ongoing issue for at least 1 month and worsend with this blood loss. MRI done outpatient that looked okay. may benefit from seeing ENT outpatient. (4) Duodenal ulcer with hemorrhage: Code(s): K26.4 - Chronic or unspecified duodenal ulcer with hemorrhage Status: Acute Assessment and Plan: -----see above. continue PPI and carafate. (5) Headache: Qualifiers: Headache type: unspecified Headache chronicity pattern: unspecified pattern Intractability: not intractable Qualified Code(s): R51 - Headache Code(s): R51 - Headache Status: Acute Assessment and Plan: -----patient had a persistent headache yesterday which was worse this morning but improved with the tramadol. Because of his persistent headache, I will consult Neurology. He had an outpatient MRI for this reason a few weeks back as well. No worrisome neurological exam findings Subjective Date/time seen: 05/25/19 14:16 Interval history: Patient is a 23-year-old male here for GI bleed with duodenal ulcers who was seen today with family at bedside. Pt stats he feels better after a unit of blood yesterday but still feels lightheaded and feels like his heart is racing when he moves or sits up. He is eating and drinking okay and his abdominal pain is better. He has not had a bowel movement and feels a bit constipated. Exam Narrative: Exam Narrative: General: Well developed well nourished patient in NAD HEENT: normocephalic Neck: supple Neuro: Alert and oriented x4. Cranial nerves 2-12 intact. Equal strength upper lower extremities 5/5 CV:RRR Resp:CTA Abd: Soft, non distended. No pain to palpation. Positive bowel sounds Extremities: No swelling, erythema, or pain to palpation. Objective Data Vital Signs Vital Signs: Vital Signs - 24 hr 05/24/19 22:00 05/25/19 06:00 Temperature 98.2 F 98.1 F Pulse Rate 82 76 Respiratory Rate 18 18 Blood Pressure 103/51 L 124/62 Pulse Oximetry 98 98 Intake/Output Intake/Output: Intake & Output 05/22/19 05/23/19 05/24/19 05/25/19 23:59 23:59 23:59 23:59 Intake Total 1100 2610 3310 2580 Output Total 0 550 Balance 1100 2060 3310 2580 Meds/Results Medications: Active Medications Generic Name Dose Route Start Last Admin Trade Name Freq PRN Reason Stop Dose Admin Acetaminophen 1,000 mg 05/23/19 11:18 Tylenol Tablet PO Q6H PRN Mild Pain (1-3) or Fever Hydrocodone Bitart/Acetaminophen 1 tab 05/23/19 11:18 05/25/19 09:06 [place] 5-325 Mg PO 1 tab Q6H PRN Administration Pain Rated 7-10 Ferrous Sulfate 324 mg 05/26/19 08:00 Ferrous Sulfate PO DAILY@0800 [facility] Ondansetron HCl 4 mg 05/22/19 15:50 05/25/19 09:06 Zofran Inj IV PUSH 4 mg Q4H PRN Administration Nausea Pantoprazole Sodium 40 mg 05/22/19 21:00 05/25/19 09:06 Protonix Iv IV PUSH 40 mg Q12HR BRIAN Administration Polyethylene Glycol 17 gm 05/25/19 13:25
[2019-05-25] MEDS: SODIUM CHLORIDE 0.9% IV 250 ML 30 ML IV CONT (17:52)
[2019-05-26] VITALS: PULSE 81
[2019-05-26 04:00] VITALS: PULSE 64
[2019-05-26] MEDS: SUCRALFATE SUSP 100 MG/ML 10 ML UDC 1000 MG PO (05:53)
[2019-05-26 06:00] VITALS: BP 127/75; PULSE 82; RESP 16; TEMP 36.7; O2SAT 99
[2019-05-26 06:55] LABS: Hematocrit 27.1 % (42.0-52.0); Hemoglobin 9.5 g/dL (14.0-18.0)
[2019-05-26 07:13] LABS: Blood Urea Nitrogen 6 mg/dL (9-20); Calcium 8.6 mg/dL (8.4-10.2); Carbon Dioxide 29 mmol/L (22-30); Chloride 103 mmol/L (98-107); Estimated CRCL calculation 127 ml/min; Estimated Glomerular Filt Rate > 60; Glucose 95 mg/dL (75-110); Potassium 3.6 mmol/L (3.4-5.0); Sodium 138 mmol/L (137-145)
[2019-05-26 08:00] VITALS: PULSE 87
[2019-05-26] MEDS: PANTOPRAZOLE SODIUM IV 40 MG VIAL IV PUSH (11:46)
[2019-05-26] MEDS: FERROUS SULFATE 324 MG TABLET PO (11:47)
--- NOTE | 2019-05-26 17:54 | PM.DS ---
DS: Diagnosis Admitting Diagnosis Admitting Diagnosis: Melena Discharge Diagnosis (1) GI bleed: Qualifiers: GI bleed type/associated pathology: duodenal ulcer Qualified Code(s): K26.4 - Chronic or unspecified duodenal ulcer with hemorrhage Code(s): K92.2 - Gastrointestinal hemorrhage, unspecified Status: Acute Assessment and Plan: Date of Service 05/26/19 Mr. Mcleod is a 23 yo male who presented with blood in stool, vomiting, headache, and dizziness. H&H were as low as 6.9, 20.3% for which he received 2 units packed RBC. GI was consulted and he underwent EGD by Dr Teran which revealed a duodenal ulcer. He was maintained on protonix BID, carafate, and oral iron supplementation. Hgb remained low but stable at 9.5 day of discharge. He has been experiencing vertigo and headaches for at least a few weeks. Headaches worsened during this stay likely secondary to anemia of acute blood loss. PCP recently obtained outpatient MRI brain which was normal. Neurology was consulted and tramadol helped his headache. He had previously been using ibuprofen for his headaches and he was educated on the importance of avoiding NSAIDs in light of his ulcer. He also reported he had an ENT appointment coming up regarding his vertigo. He was hemodynamically stable for discharge 05/26/19 with instructions to follow up with Dr Mota, Dr Teran(GI) and Dr Calderon (Neuro). Consultations: GI - Dr Teran Neuro - Dr Calderon (2) Acute blood loss anemia: Code(s): D62 - Acute posthemorrhagic anemia Status: Acute Assessment and Plan: Secondary to duodenal ulcer. Started on oral iron supplements. Monitor CBC outpatient. (3) Vertigo: Code(s): R42 - Dizziness and giddiness Status: Acute Assessment and Plan: Has been intermittent for weeks. He has an upcoming appointment with ENT. No dizziness on day of discharge. (4) Duodenal ulcer with hemorrhage: Code(s): K26.4 - Chronic or unspecified duodenal ulcer with hemorrhage Status: Acute Assessment and Plan: Seen on EGD. Started on PPI and carafate, avoid NSAIDs. Follow up with Dr Teran. (5) Headache: Qualifiers: Headache type: unspecified Headache chronicity pattern: unspecified pattern Intractability: not intractable Qualified Code(s): R51 - Headache Code(s): R51 - Headache Status: Acute Assessment and Plan: Intermittent and have also been going on for at least a few weeks. Likely worsened in the setting of acute blood loss anemia. Outpatient MRI brain obtained by PCP 05/13/19 is normal. Neurology consulted, follow up with Dr Calderon. Tramadol helped, Dr Calderon recommended continuing tramadol. DS: Summary Time Spent with Patient Time attestation: Total time spent providing and/or coordinating discharge services: 35 minutes Exam Narrative: Exam Narrative: General: Male resting supine in bed in no acute distress. HEENT: Normocephalic, EOMI, oral mucosa moist. Cardiovascular: Rate and rhythm are regular. Respiratory: Lungs clear to auscultation all alba. Abdomen: Soft, non-tender, non-distended, bowel sounds present. Extremities: Peripheral pulses intact. No edema. Neuro: No focal neurological deficits. Speech is clear. DS: Data Data Completed and Pending Completed studies during hospitalization: Pending at discharge 05/23/19 07:59 Surgical [PTH] Routine Labs on day of discharge: Labs from last 24 hours 05/26/19 05/26/19 05/25/19 06:35 06:35 15:16 Hgb 9.5 L Hct 27.1 L Sodium 138 Potassium 3.6 Chloride 103 Carbon Dioxide 29 BUN 6 L Creatinine 0.80 Estim Creat Clear Calc 127 Estimated GFR > 60 Glucose 95 Calcium 8.6 Crossmatch See Detail Procedures/Treatmen
--- NOTE | 2019-05-27 06:15 | CONS_ITS ---
DATE OF CONSULTATION: HISTORY: This 23 years old right-handed male has been admitted to [facility] through the emergency room for the complaint of bloody stool with vomiting and headache of 1 month's duration in addition to the history of no significant medical problem except chronic recurrent headache. In the past, he has undergone ear surgery and surgeries on arm subsequent to a fracture as a child. 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 He is not taking any home medication. ALLERGIES: HE IS NOT ALLERGIC TO ANY MEDICATION. ? Evaluation revealed him to be afebrile with rapid pulse, respiration 18, blood pressure 112/87, pulse ox 100. Initial examination was fairly unremarkable. He was found to have subsequently melena and has been seen by the digital solutions architect. Neuro consultation has been obtained because of ongoing complaint of recurrent headaches for which he has not received any prophylactic therapies, but headaches are about 3 to 4 times per week. PHYSICAL EXAMINATION: GENERAL: He is awake, alert, cooperative, in no obvious acute distress. HEENT: Head normocephalic with no cranial bruit. Ear, nose, throat exam normal. NECK: Supple with no cervical bruit. No thyromegaly. No lymphadenopathy. HEART: Regular. LUNGS: Clear. ABDOMEN: Soft. NEUROLOGICAL: He has normal mental status. Normal speech. Pupils round and regular. [place] of vision full. Extraocular movements full. Face symmetrical. Tongue midline. Motor examination revealed him to have normal strength and tone proximally and distally in both upper and lower extremities. He has 1+ deep tendon reflexes in upper and lower extremities. Plantars are downgoing. There is no evidence of sensory or cerebellar deficit. The patient's mother was in the room. He was advised that we would like to see him in a couple of weeks for the treatment of the migraine because he will need the prophylactic as well as the abortive therapy, but because of the recent GI problem, I will be reluctant to start him on any medication, so once he is stable, discharged from here, he can return to our office for the followup, then treat him accordingly. GADIEL PEREZ M.D. SLOTTER OPERATOR HELPER SLOTTER OPERATOR HELPER D I MT: Terell
== END 2019-05-26 13:17 | disposition home or self-care (01) | DRG 378 ==
LOC: ANHED 15:51 → ANH3MEDSUR 16:04
PROVIDERS: Emergency Medicine Emergency Medical Services; Internal Medicine Gastroenterology; Nurse Practitioner; Physician Assistant; Admitting Provider Internal Medicine; Emergency Provider Emergency Medicine; PCP Internal Medicine; Visit Provider Physician Assistant
PROC: 0DJ08ZZ Inspection of Upper Intestinal Tract, Via Natural or Artificial Opening Endoscopic (ICD-10-PCS; CPT 43235; principal; 2019-05-23 07:30)
DX: K26.4 Chronic or unspecified duodenal ulcer with hemorrhage (principal); D62 Acute posthemorrhagic anemia; K29.70 Gastritis, unspecified, without bleeding; K92.0 Hematemesis; R51 Headache; K21.9 Gastro-esophageal reflux disease without esophagitis; R42 Dizziness and giddiness
CPT/HCPCS: 36415; 36430; 74177; 80048; 80053; 83605; 85014; 85018; 85025; 85027; 85610; 85730; 86850; 86900; 86901; 86923; 88305; 96361; 96365; 96374; 96375; 96376; 99285; A9270; C9113; G0378; J0131; J0171; J2405; J2704; J7030; J7050; J7120; P9016; Q9967

== ENCOUNTER 2019-05-29 13:58 | Outpatient (CLI) | payer OTHER, SELFPAY ==
[2019-05-29 15:42] LABS: Hematocrit 31.3 % (42.0-52.0); Hemoglobin 10.4 g/dL (14.0-18.0); Mean Corpuscular HGB Conc 33.2 g/dl (32-36); Mean Corpuscular Volume 84.1 fl (80-100); Mean Platelet Volume 11.1 fl (7.4-10.4); Platelet Count Result 348 k/mm3 (150-375); Red Blood Count 3.72 M/mm3 (4.6-6.20); Red Cell Distribution Width 14.3 % (11.5-14.5); White Blood Count 8.5 K/mm3 (4.5-10.0)
== END 2019-05-29 13:59 | disposition home or self-care (01) ==
LOC: ANHLAB 14:00
PROVIDERS: PCP Internal Medicine; Visit Provider Physician Assistant
DX: D62 Acute posthemorrhagic anemia (principal)
CPT/HCPCS: 36415; 85027

== ENCOUNTER 2019-06-18 16:06 | Outpatient (CLI) | payer OTHER, SELFPAY ==
[2019-06-18 16:27] LABS: Hematocrit 38.7 % (42.0-52.0); Mean Corpuscular HGB Conc 33.6 g/dl (32-36); Mean Corpuscular Hemoglobin 28.3 pg (26-34); Mean Corpuscular Volume 84.1 fl (80-100); Mean Platelet Volume 10.6 fl (7.4-10.4); Platelet Count Result 280 k/mm3 (150-375); Red Cell Distribution Width 13.2 % (11.5-14.5); White Blood Count 6.6 K/mm3 (4.5-10.0)
== END 2019-06-18 16:07 | disposition home or self-care (01) ==
PROVIDERS: PCP Internal Medicine; Visit Provider Internal Medicine Gastroenterology
DX: D62 Acute posthemorrhagic anemia (principal)
CPT/HCPCS: 36415; 85027

== ENCOUNTER 2019-10-26 07:24 | Emergency (ER) | payer OTHER, SELFPAY ==
[2019-10-26 07:26] VITALS: BP 146/80; PULSE 75; RESP 17; TEMP 36.2; O2SAT 100
[2019-10-26 07:55] VITALS: BP 129/87; PULSE 58; RESP 14; TEMP 36.6; O2SAT 99
--- NOTE | 2019-10-26 07:57 | ED.WOUNDLAC ---
HPI - Wound/Laceration General Chief Complaint: Wound/Laceration Stated Complaint: hand lac Time Seen by Provider: 10/26/19 07:54 History of Present Illness HPI narrative: Patient presents to the ED with a cut on his left index finger. He cut it at 7 AM while making breakfast. The injury was with a kitchen knife. His tetanus is up-to-date. He gauges the pain at 6 out of 10. He does not want any pain medicine for the injury. He has not been sick recently. He has a history of surgery on his right arm, he has a history of multiple surgeries on his ears, and he had a surgery on his stomach for a bleeding ulcer. He is not on any prescription medicine. He does not smoke cigarettes, does not drink alcohol, and does not do drug. He is a daycare assistant. Onset (ago): hour(s) Extremity Location: Left: hand Place: home Patient tetanus UTD: Yes Context: accidental Associated symptoms: none Related Data Home Medications Medication Instructions Recorded Confirmed No Home Medications 10/26/19 10/26/19 Allergies Allergy/AdvReac Type Severity Reaction Status Date / Time ibuprofen AdvReac Severe bleeding Verified 10/26/19 07:25 ulcer Review of Systems Review of Systems: Narrative: CONSTITUTIONAL: Denies fever, chills, or sweats. EYES: Denies visual changes, redness, or discharge. ENT: Denies rhinorrhea, congestion, sore throat, or otalgia. CARDIOVASCULAR: Denies chest pain, palpitations, or edema. RESPIRATORY: Denies cough or dyspnea. GASTROINTESTINAL: Denies abdominal pain, nausea, vomiting, or diarrhea. GENITOURINARY: Denies dysuria or hematuria. SKIN: Denies rash or itching. Laceration on the left index finger MUSCULOSKELETAL: Denies back pain, joint pain, or myalgia. NEUROLOGIC: Denies headache, numbness, or weakness. PSYCHIATRIC: Denies anxiety or depression. [facility] Past Medical History Medical History Duodenal ulcer with hemorrhage Headache Surgical History Surgical History History of ear surgery Multiple ear surgeries including eardrum reconstruction bilaterally and several tube placements. History of surgery on arm Right arm surgery x4 after open fracture as a child. Social History Social History (Updated 10/26/19 @ 08:00 by Maia Mcghee MD) Social History: The patient lives in [place] with his parents. He does auto body repair. He designates his mother, Alexandrea, as his surrogate decision maker and he wishes to be a full code. He is a lifelong nonsmoker and denies alcohol and drug abuse. Smoking status: Never smoker Alcohol intake: never Substance use: never Gender identity (if verbalized by the patient): Male Spiritual care concerns: No Agree to blood products: Yes Course Vital Signs Vital signs: Vital Signs Temperature 97.1 F L 10/26/19 07:26 Pulse Rate 75 10/26/19 07:26 Respiratory Rate 17 10/26/19 07:26 Blood Pressure 146/80 H 10/26/19 07:26 Pulse Oximetry 100 10/26/19 07:26 Temperature 97.9 F 10/26/19 07:55 Pulse Rate 58 L 10/26/19 07:55 Respiratory Rate 14 10/26/19 07:55 Blood Pressure 129/87 10/26/19 07:55 Pulse Oximetry 99 10/26/19 07:55 Procedures Laceration Laceration 1: Date: 10/26/19 Time: 08:46 Site: upper extremity Side (If applicable): left Size (cm): 3 Description: flap Depth: simple, single layer Local Anesthetic: lidocaine 1% Amount of anesthesia used (mL): 2 Pre-repair: wound explored, irrigated and minor debridement ====== Skin Level ====== Skin layer closed with: nylon Size (cm): 5-0 Number of sutures: 5 Technique: simple, interrupted ====== Subcutaneous Layer ====== ====== Muscle Layer ====== ====== Tendon Layer ====== Dressing: Gauze and tape Discharge Plan Discharge Clinical Impre
[2019-10-26 09:02] VITALS: BP 126/64; PULSE 60; RESP 14; O2SAT 99
== END 2019-10-26 09:03 | disposition home or self-care (01) ==
PROVIDERS: Emergency Provider Emergency Medicine; PCP Internal Medicine
DX: S61.211A Laceration without foreign body of left index finger without damage to nail, initial encounter (principal); W26.0XXA Contact with knife, initial encounter; Y93.G1 Activity, food preparation and clean up
CPT/HCPCS: 12002; 99282

== ENCOUNTER 2019-11-02 19:05 | Emergency (ER) | payer OTHER, SELFPAY ==
[2019-11-02 19:20] VITALS: BP 132/79; PULSE 78; RESP 16; TEMP 36.7; O2SAT 99
--- NOTE | 2019-11-02 19:21 | ED.GENADULT ---
HPI - General Adult General Chief complaint: Wound/Laceration Stated complaint: Stitches removal Time Seen by Provider: 11/02/19 19:21 Source: patient Mode of arrival: ambulatory Limitations: no limitations History of Present Illness HPI narrative: 24-year-old male patient presents to the [facility] with request for suture removal. Patient states he cut his left index finger with a knife about 7 days ago and had sutures placed [facility]. Patient states he was not placed on antibiotics at that time and just has been washing the area with a damp cloth. Patient denies any fevers, body aches or chills. Denies any discharge coming from the wound. Related Data Home Medications Medication Instructions Recorded Confirmed No Home Medications 10/26/19 10/26/19 Allergies Allergy/AdvReac Type Severity Reaction Status Date / Time ibuprofen AdvReac Severe bleeding Verified 11/02/19 19:25 ulcer Review of Systems Review of Systems: Narrative: CONSTITUTIONAL: Denies fever, chills, or sweats. EYES: Denies visual changes, redness, or discharge. ENT: Denies rhinorrhea, congestion, sore throat, or otalgia. CARDIOVASCULAR: Denies chest pain, palpitations, or edema. RESPIRATORY: Denies cough or dyspnea. GASTROINTESTINAL: Denies abdominal pain, nausea, vomiting, or diarrhea. GENITOURINARY: Denies dysuria or hematuria. SKIN: Denies rash or itching. Positive sutures in place on left index finger time 7 days MUSCULOSKELETAL: Denies back pain, joint pain, or myalgia. NEUROLOGIC: Denies headache, numbness, or weakness. PSYCHIATRIC: Denies anxiety or depression. [facility] Past Medical History Medical History Duodenal ulcer with hemorrhage Headache Surgical History Surgical History History of ear surgery Multiple ear surgeries including eardrum reconstruction bilaterally and several tube placements. History of surgery on arm Right arm surgery x4 after open fracture as a child. Family History Family History Father Family history of cardiovascular disease Hypertension CAD (coronary artery disease) Mother Hypertension Social History Social History Social History: The patient lives in [place] with his parents. He does auto body repair. He designates his mother, Alexandrea, as his surrogate decision maker and he wishes to be a full code. He is a lifelong nonsmoker and denies alcohol and drug abuse. Smoking status: Never smoker Alcohol intake: never Substance use: never Gender identity (if verbalized by the patient): Male Spiritual care concerns: No Agree to blood products: Yes Comments At the time of my signature I agree with nursing past medical history, surgical, social, and family history. There is no relevant family history pertinent to the presenting complaint. Exam Narrative: Exam Narrative: GENERAL: Well-appearing, well-nourished, and in no acute distress. HEAD: Normocephalic, atraumatic. EYES: PERRLA and EOMI. ENT: Nares clear, no rhinorrhea or epistaxis. Mucous membranes moist. NECK: Supple. No lymphadenopathy CHEST: Clear to auscultation. No respiratory distress. HEART: Regular rate and rhythm. No murmur heard. Normal peripheral pulses. ABDOMEN: Soft, nontender, nondistended, normal active bowel sounds. EXTREMITIES: Normal range of motion. No edema. SKIN: Warm, dry, no rash. Patient has [address] to left index finger. The wound is sort of a crescent-shaped that goes over the lateral side of the MIP joint. Her is no gaping, discharge, surrounding erythema or tenderness. Patient does have excellent range of motion of the finger. Patient has good cap refill. The wound seems to be healing well. NEURO: No focal deficits. Alert and oriented x3. Course Vital Signs
== END 2019-11-02 19:38 | disposition home or self-care (01) ==
PROVIDERS: Emergency Provider Nurse Practitioner Family; PCP Internal Medicine
DX: Z48.02 Encounter for removal of sutures (principal)
CPT/HCPCS: 99211; G0463

== ENCOUNTER 2020-09-15 18:35 | Outpatient (CLI) | payer OTHER, SELFPAY ==
--- NOTE | ~2020-09-15 | XR_ITS ---
XR wrist RT min 3V DATE: 09/15/2020 18:51 INDICATION: Medial pain after changing tire 2 days ago TECHNIQUE: 4 views COMPARISON: None FINDINGS: No fracture or dislocation, periosteal reaction or bone destruction. Joint spaces are prese rved. No erosive change or chondrocalcinosis. IMPRESSION: Negative Reviewed, dictated and finalized at location A. IMPRESSION: Negative
== END 2020-09-15 18:36 | disposition home or self-care (01) ==
LOC: ANHIMG 18:38
PROVIDERS: PCP Internal Medicine; Visit Provider Internal Medicine
DX: M25.531 Pain in right wrist (principal)
CPT/HCPCS: 73110

== ENCOUNTER 2021-01-04 20:00 | Emergency (ER) | payer OTHER, SELFPAY ==
[2021-01-04] VITALS (18 sets, daily range): BP systolic 127–150; BP diastolic 81–97; PULSE 67–92; RESP 12–21; TEMP 36.5–36.8; O2SAT 97–99
--- NOTE | ~2021-01-04 | XR_ITS ---
EXAMINATION: XR chest 2V EXAM DATE: 01/04/2021 21:05 INDICATION: SOB With Sternal Chest Pressure X 2 Days,. TECHNIQUE: Frontal and lateral projections of the chest obtained and reviewed. FINDINGS: The lungs are clear. There are no pleural effusions. The cardiomediastinal silhouette is within normal limits. There is no pneumothorax suspected. The bones and soft tissues are unremarkab le. IMPRESSION: Normal chest x-ray exam. Reviewed, dictated and finalized at location A. IMPRESSION: Normal chest x-ray exam.
--- NOTE | 2021-01-04 20:37 | ECG_ITS ---
Measurements Intervals [place] Rate: 70 P: 34 IL: 146 QRS: 18 QRSD: 105 T: -16 QT: 356 QTc: 386 Interpretive Statements SINUS RHYTHM BORDERLINE ST-T WAVE ABNORMALITY- INFERIOR LEADS BORDERLINE ECG Electronically Signed On 01-05-2021 11:22:27 CDT by Aj Rosales D.O.
[2021-01-04 21:42] LABS: Basophils Absolute Auto 0.1 K/mm3 (0.0-0.1); Basophils Percent Auto 0.8 % (0.2-1.2); Eosinophils Absolute Auto 0.2 K/mm3 (0-0.3); Eosinophils Percent Auto 2.2 % (0-4.4); Hematocrit 40.1 % (42.0-52.0); Hemoglobin 14.7 g/dL (14.0-18.0); Immature Granulocyte Absolute 0.03 K/mm3 (0.00-0.031); Immature Granulocyte Percent A 0.3 % (0-0.5); Lymphocytes Absolute Auto 2.92 K/mm3 (0.9-3.2); Lymphocytes Percent Auto 29.3 % (18.3-44.2); Mean Corpuscular HGB Conc 36.7 g/dl (32-36); Mean Corpuscular Hemoglobin 29.8 pg (26-34); Mean Corpuscular Volume 81.3 fl (80-100); Mean Platelet Volume 10.5 fl (7.4-10.4); Monocytes Absolute Auto 0.7 K/mm3 (0.1-0.6); Neutrophils Percent Auto 60.4 % (45.5-73.1); Platelet Count Result 282 k/mm3 (150-375); Red Blood Count 4.93 M/mm3 (4.6-6.20); Red Cell Distribution Width 12.2 % (11.5-14.5)
[2021-01-04 21:50] LABS: Anion Gap 13 mmol/L (8-16); Blood Urea Nitrogen 11 mg/dL (9-20); Calcium 9.3 mg/dL (8.4-10.2); Carbon Dioxide 21 mmol/L (22-30); Chloride 106 mmol/L (98-107); Estimated CRCL calculation 164 ml/min; Estimated Glomerular Filt Rate > 60; Glucose 114 mg/dL (65-110); Potassium 3.5 mmol/L (3.4-5.0); Sodium 140 mmol/L (137-145)
[2021-01-04 23:13] LABS: Troponin I < 0.012 ng/mL (0.000-0.034)
--- NOTE | 2021-01-04 23:33 | ED.SOB ---
HPI - SOB/Dyspnea General Chief Complaint: Shortness of Breath/Dyspnea Stated Complaint: shortness of breath Time Seen by Provider: 01/04/21 22:04 Source: patient Mode of arrival: ambulatory Limitations: no limitations History of Present Illness MD elicited complaint: shortness of breath Onset (ago): week(s) (1) Context: other (occurs at rest and with activity, shortness of breath, feels like his breath catches and then incr RR for minutes at a time.) Timing: intermittent Severity: moderate Exacerbating factors: nothing, exertion, movement and talking Relieving factors: nothing Associated symptoms: chest pain and lightheadedness Treatment prior to arrival: none Related Data Home oxygen amount: none Home Medications Medication Instructions Recorded Confirmed No Home Medications 01/04/21 01/04/21 Allergies Allergy/AdvReac Type Severity Reaction Status Date / Time ibuprofen AdvReac Severe bleeding Verified 01/04/21 22:25 ulcer Review of Systems Review of Systems: CONSTITUTIONAL: no fever, no weight loss, no confusion EYES: no vision changes, no eye pain ENT: no rhinorrhea, no sore throat, no difficulty swallowing CARDIOVASCULAR: chest pain with shortness of breath, no leg edema, no palpitations RESPIRATORY: no cough, positive for shortness of breath, no hemoptysis GASTROINTESTINAL: no abdominal pain, no nausea, no vomiting, no diarrhea GENITOURINARY: no flank pain, no dysuria, no hematuria SKIN: no rash, no jaundice MUSCULOSKELETAL: no back pain, no trauma. NEUROLOGIC: No headache, no dizziness, no focal weakness PSYCHIATRIC: No hallucinations, no suicidal ideation PMFSH Past Medical History Medical History Duodenal ulcer with hemorrhage Headache Surgical History Surgical History History of ear surgery Multiple ear surgeries including eardrum reconstruction bilaterally and several tube placements. History of surgery on arm Right arm surgery x4 after open fracture as a child. Family History Family History Father Family history of cardiovascular disease Hypertension CAD (coronary artery disease) Mother Hypertension Social History Social History Social History: The patient lives in [place] with his parents. He does auto body repair. He designates his mother, Alexandrea, as his surrogate decision maker and he wishes to be a full code. He is a lifelong nonsmoker and denies alcohol and drug abuse. Smoking status: Never smoker Alcohol intake: never Substance use: never Gender identity (if verbalized by the patient): Male Spiritual care concerns: No Agree to blood products: Yes Exam Narrative: General: alert, afebrile, answering all questions appropriately Head: normocephalic, atraumatic Eyes: EOMI bilaterally, anicteric, no injection ENT: moist mucous membranes, oropharynx patent, no rhinorrhea Neck: supple, trachea midline, no JVD Chest: equal chest rise bilaterally, no chest wall trauma noted Lungs: clear to auscultation bilaterally, respirations unlabored CV: regular rate, no ROME B, calf size equal bilaterally Abd: soft, non-distended, non-tender, no rebound, no gaurding, negative [place]'s EXT: no deformity noted, moving all extremities equally Skin: warm, dry, no pallor Neuro: alert, oriented x 3; CN 2-12 grossly intact, no dysarthria Psych: affect appropriate, though content normal Course Course Emergency Course: All labs normal, no evidence of infection, blood pressure is somewhat high but patient is somewhat anxious. EKG with normal sinus rhythm troponin negative after 1 week of chest pain with shortness of breath chest x-ray is normal mediastinum is normal no pericardial effusion noted no cardiomegaly. Patient has follow-up with primary care docto
== END 2021-01-04 23:45 | disposition home or self-care (01) ==
PROVIDERS: Emergency Medicine; Emergency Provider Emergency Medicine; PCP Internal Medicine
DX: R06.02 Shortness of breath (principal)
CPT/HCPCS: 36415; 71046; 80048; 84484; 85025; 93005; 99284

== ENCOUNTER → 2021-01-07 01:17 | Outpatient (CLI) | payer OTHER, SELFPAY ==
[2021-01-07 18:06] LABS: SARS-CoV-2 RNA PCR Negative
== END ==
PROVIDERS: PCP Internal Medicine; Visit Provider Internal Medicine
DX: R06.00 Dyspnea, unspecified (principal); Z20.822 Contact with and (suspected) exposure to COVID-19
CPT/HCPCS: C9803; U0003; U0005

== ENCOUNTER 2021-01-31 13:41 | Outpatient (CLI) | payer OTHER, SELFPAY ==
--- NOTE | 2021-01-31 13:53 | ECHO_ITS ---
Patient Info Name: Stiven Mcleod Age: 25 years : 1995 Gender: Male Ht: 69 in Wt: 220 lbs BSA: 2.24 m2 HR: 64 bpm BP: 141 / 90 mmHg Technical Quality: Good Exam Date: 01/31/2021 2:04 PM Exam [facility] Patient Status: Outpatient Admit Date: 01/31/2021 Staff Ordering Physician: Maxx Mota DO Squeezer Operator: Roxana Luis RDCS Attending Provider: Maxx Mota DO Referring Physician: Svetlana FAULKNER; Exam Type: CA echo doppler color flow Study Info Indications R06.00 - Dyspnea, unspecified Complete two-dimensional, color flow and Doppler transthoracic echocardiogram is performed. Summary 1. Complete two-dimensional, color flow and Doppler transthoracic echocardiogram is performed. 2. Left ventricular chamber dimension is normal. 3. Left ventricular systolic function is normal, estimated at 55-60%. 4. The left ventricular diastolic function is normal. 5. E/e' 5 is not elevated. 6. Global longitudinal strain is normal at -17.0%. 7. There is trace mitral valve regurgitation. 8. No pulmonary hypertension, estimated pulmonary arterial systolic pressure is 19 mmHg. Left Ventricle E/e' 5 is not elevated. Global longitudinal strain is normal at -17.0%. Left ventricular chamber dimension is normal. Left ventricular systolic function is normal, estimated at 55-60%. The left ventricular diastolic function is normal. Right Ventricle Right ventricular chamber dimension is normal. Right ventricular systolic function is normal. Left Atria Left atrial chamber dimension is normal. Right Atria Right atrial chamber dimension is normal. Aortic Valve The aortic valve is trileaflet. There is no aortic valve stenosis. There is no aortic valve regurgitation. Pulmonic Valve There is trace pulmonic regurgitation. Mitral Valve There is no mitral valve stenosis. There is trace mitral valve regurgitation. Tricuspid Valve There is no tricuspid valve regurgitation. No pulmonary hypertension, estimated pulmonary arterial systolic pressure is 19 mmHg. Pericardium/Pleural There is no pericardial effusion. Inferior Vena Cava Normal inferior vena cava with >50% collapse upon inspiration consistent with normal right atrial pressure, 5 mmHg. Aorta The aortic root size at the sinus of Valsalva is normal. Left Ventricular Outflow Tract Name Value Normal LVOT 2D LVOT Diameter 2.0 cm LVOT Doppler LVOT Peak Gradient 5 mmHg LVOT Mean Gradient 3 mmHg LVOT VTI 20 cm LVOT VTI/AV VTI Ratio 0.8 LVOT Stroke Volume 62 ml LVOT CO 4.3 l/min LVOT CI 1.9 l/min/m2 Pulmonic Valve Name Value Normal RVOT Doppler
== END 2021-01-31 13:42 | disposition home or self-care (01) ==
LOC: ANHCARD 13:44
PROVIDERS: PCP Internal Medicine; Visit Provider Internal Medicine
DX: R06.00 Dyspnea, unspecified (principal)
CPT/HCPCS: 93225; 93226; 93306

== ENCOUNTER 2021-11-24 18:37 | Emergency (ER) | payer OTHER, SELFPAY ==
[2021-11-24 18:50] VITALS: BP 148/93; PULSE 98; RESP 16; TEMP 35.9; O2SAT 100
--- NOTE | 2021-11-24 19:12 | ED.UPPEXIN ---
HPI - Extremity Injury (Upper) General Chief Complaint: Extremity Injury, Upper Stated Complaint: Left Arm Burn Time Seen by Provider: 11/24/21 19:05 Source: patient, RN notes reviewed and old records reviewed Mode of arrival: ambulatory Limitations: no limitations History of Present Illness HPI narrative: 26 year old male who presents to [facility] care with complaints of burn to the left inner elbow region which occurred from an exhaust pipe last evening when he was working on his car. Patient has 9cm X4cm red tissue area to inner left elbow with 2 blister noted in red tissue area, one 1cm diameter and other 1.5cm diameter. Patient denies acute pain to burn region has not taken any OTC medications. MD complaint: injury to: left and elbow (inner elbow burn) Onset (ago): day(s) (last night) Severity scale (1-10): 3 Associated symptoms: denies other symptoms Related Data Allergies Allergy/AdvReac Type Severity Reaction Status Date / Time ibuprofen AdvReac Severe bleeding Verified 11/24/21 18:47 ulcer Review of Systems Review of Systems: CONSTITUTIONAL: Denies fever, chills, or sweats. EYES: Denies visual changes, redness, or discharge. ENT: Denies rhinorrhea, congestion, sore throat, or otalgia. CARDIOVASCULAR: Denies chest pain, palpitations, or edema. RESPIRATORY: Denies cough or dyspnea. GASTROINTESTINAL: Denies abdominal pain, nausea, vomiting, or diarrhea. GENITOURINARY: Denies dysuria or hematuria. SKIN: Denies rash or itching.positive for burn to left inner aspect of left elbow region with blisters X2 MUSCULOSKELETAL: Denies back pain, joint pain, or myalgia. NEUROLOGIC: Denies headache, numbness, or weakness. PSYCHIATRIC: Denies anxiety or depression. [facility] Past Medical History Medical History (Updated 11/25/21 @ 00:01 by Andrew Hawthorne) Duodenal ulcer with hemorrhage Headache Surgical History Surgical History History of ear surgery Multiple ear surgeries including eardrum reconstruction bilaterally and several tube placements. History of surgery on arm Right arm surgery x4 after open fracture as a child. Family History Family History Father Family history of cardiovascular disease Hypertension CAD (coronary artery disease) Mother Hypertension Social History Social History (Updated 11/24/21 @ 19:53 by Belem Fox NP) Social History: The patient lives in [place] with his parents. He does auto body repair. He designates his mother, Alexandrea, as his surrogate decision maker and he wishes to be a full code. He is a lifelong nonsmoker and denies alcohol and drug abuse. Smoking status: Never smoker Alcohol intake: never Substance use: never Living arrangements: with family Gender identity (if verbalized by the patient): Male Spiritual care concerns: No Agree to blood products: Yes Comments At time of signature, agree with nursing past medical, surgical, social and family history. There is no relevant family history pertinent to the presenting complaint Exam Narrative: GENERAL: Well-appearing, well-nourished, and in no acute distress. HEAD: Normocephalic, atraumatic. EYES: PERRLA and EOMI. ENT: Nares clear, no rhinorrhea or epistaxis. Mucous membranes moist. TMs with some scarring throat pink with no swelling. NECK: Supple. No lymphadenopathy CHEST: Clear to auscultation. No respiratory distress. SaO2 100% on room air HEART: Regular rate and rhythm. No murmur heard. Normal peripheral pulses. ABDOMEN: Soft, nontender, nondistended, normal active bowel sounds. EXTREMITIES: Normal range of motion. No edema. SKIN: Warm, dry, no rash. Burn to left inner elbow region which occurred last p.m. tissue red with 2 blisters noted no drainage or acute warmth of wound. Patient denies any acute pain to site NEURO: No focal deficits. Alert and oriented x3. Course Cours
[2021-11-24] MEDS: SILVER SULFADIAZINE 1% CR 50 GM JAR (*BKC) 1 APPLIC TOPICAL (19:26)
== END 2021-11-24 19:45 | disposition home or self-care (01) ==
PROVIDERS: Emergency Provider Registered Nurse; PCP Internal Medicine
DX: T22.222A Burn of second degree of left elbow, initial encounter (principal); X16.XXXA Contact with hot heating appliances, radiators and pipes, initial encounter
CPT/HCPCS: 99213; A9270; G0463

== ENCOUNTER 2022-05-27 09:41 | Emergency (ER) | payer OTHER, SELFPAY ==
--- NOTE | ~2022-05-27 | XR_ITS ---
XR foot LT min 3V DATE: 05/27/2022 10:00 INDICATION: Stubbed left great toe this morning. Pain. TECHNIQUE: 4 views COMPARISON: None FINDINGS: No fracture or dislocation, periosteal reaction or bone destruction. Joint spaces are prese rved. No erosive changes. No calcaneal enthesopathy. IMPRESSION: Negative Reviewed, dictated and finalized at location A. ING PRESSMAN IMPRESSION: Negative
[2022-05-27 10:15] VITALS: BP 145/95; PULSE 77; RESP 16; TEMP 36.6; O2SAT 99
--- NOTE | 2022-05-27 10:49 | ED.LOWEXIN ---
HPI - Extremity Injury (Lower) General Chief Complaint: Extremity Injury, Lower Stated Complaint: left foot 1 digit toe Time Seen by Provider: 05/27/22 10:49 Source: patient Mode of arrival: ambulatory Limitations: no limitations Related Data Allergies Allergy/AdvReac Type Severity Reaction Status Date / Time No Known Allergies Allergy Verified 05/27/22 10:32 Review of Systems Review of Systems: CONSTITUTIONAL: Denies body aches, fever, chills EYES: Denies visual changes ENT: Denies rhinorrhea, congestion CARDIOVASCULAR: Denies chest pain, palpitations, or edema. RESPIRATORY: Denies cough or dyspnea. GASTROINTESTINAL: Denies abdominal pain, nausea, vomiting, or diarrhea. SKIN: Denies rash, itching, or wounds. MUSCULOSKELETAL: Denies back pain, joint pain, or myalgia. NEUROLOGIC: Denies headache, numbness, tingling, or weakness. PSYCH: Denies depression or anxiety. All systems reviewed & are unremarkable except as noted in HPI and below PMFSH Past Medical History Medical History (Updated 05/27/22 @ 10:53 by Dhara Flowers, DEREK) Duodenal ulcer with hemorrhage Headache Surgical History Surgical History History of ear surgery Multiple ear surgeries including eardrum reconstruction bilaterally and several tube placements. History of surgery on arm Right arm surgery x4 after open fracture as a child. Family History Family History Father Family history of cardiovascular disease Hypertension CAD (coronary artery disease) Mother Hypertension Social History Social History (Updated 03/27/22 @ 16:36 by Kamron Combs MA) Social History: The patient lives in [place] with his parents. He does auto body repair. He designates his mother, Alexandrea, as his surrogate decision maker and he wishes to be a full code. He is a lifelong nonsmoker and denies alcohol and drug abuse. Smoking status: Never smoker Alcohol intake: never Substance use: never Lack of Transportation: No Lack of Food: Never True Current Housing: I Have Housing Concerned About Future Housing: No Difficulty Paying Gas/Electric Bills: No Difficulty Paying for Meds: No Currently Unemployed: No Education: Associate Degree Difficulty w/ Childcare or Family Care: No Living arrangements: with family Gender identity (if verbalized by the patient): Male Spiritual care concerns: No Agree to blood products: Yes Comments At time of signature, I have reviewed and agree with nursing past medical, surgical, social and family history unless otherwise noted. Please see nursing chart for further information. There is no relevant family history pertinent to the presenting complaint Exam Narrative: GENERAL: Well-appearing, well-nourished, and in no acute distress. HEAD: Normocephalic, atraumatic. EYES: PERRLA, conjunctivae clear NECK: Supple. CHEST: Speaks in full sentences. No respiratory distress. HEART: Regular rate and rhythm. Normal and equal peripheral pulses. EXTREMITIES: Left great toe with small subungual hematoma approx <25%; tender to palpation of distal aspect of toe; No swelling or deformity. Nail intact. Foot has normal strength and sensation, normal range of motion. No open wounds or obvious deformity; alignment normal, pulse palpable and equal bilaterally, skin warm, dry, pink. Capillary refill less than 3 seconds. SKIN: Warm, dry, no rash. NEURO: Alert and oriented x3. PSYCH: Normal mood and affect Course Course Emergency Course: Patient is aware of diagnosis, understands and agrees to treatment plan. Anticipatory guidance given. Patient agrees to follow-up as directed and is aware of reasons to seek care at the emergency department. Portions of this record may have been created with voice recognition software Level of Care: Express Care Visit Vital Signs Vital signs: Reviewed
== END 2022-05-27 11:07 | disposition home or self-care (01) ==
PROVIDERS: Emergency Provider Nurse Practitioner Family; PCP Internal Medicine
DX: M79.675 Pain in left toe(s) (principal)
CPT/HCPCS: 73630; 99213; G0463

== ENCOUNTER 2022-09-02 08:32 | Emergency (ER) | payer OTHER, SELFPAY ==
--- NOTE | 2022-09-02 08:34 | ED.EYEPROB ---
HPI - Eye Problem General Chief complaint: Eye Problems Stated complaint: right side eye irritation Time Seen by Provider: 09/02/22 08:52 Source: patient and RN notes reviewed Mode of arrival: ambulatory Limitations: no limitations History of Present Illness HPI Narrative: 27-year-old male presents with concern for right eye redness, watery discharge, pain. Reports symptoms started in the middle of the night the night before last, he was wearing his contacts to bed. Reports he takes his contacts out. Reports it improved slightly yesterday, he wore his contacts again to bed and he began having pain again. He denies purulent drainage. He denies vision changes. MD chief complaint: eye pain Related Data Allergies Allergy/AdvReac Type Severity Reaction Status Date / Time No Known Allergies Allergy Verified 09/02/22 08:42 Review of Systems Review of Systems: CONSTITUTIONAL: Denies malaise, chills, sweats, or fever. EYES: Denies visual changes. Reports right eye redness, irritation, watery discharge. ENT: Denies rhinorrhea, congestion, sinus pain, otalgia or sore throat. SKIN: Denies rash or itching. NEUROLOGIC: Denies numbness, weakness, or headache. PSYCHIATRIC: Denies anxiety or depression. All systems reviewed & are unremarkable except as noted in HPI and below PMFSH Past Medical History Medical History (Updated 09/02/22 @ 09:00 by Janna Gan NP) Duodenal ulcer with hemorrhage Headache Surgical History Surgical History History of ear surgery Multiple ear surgeries including eardrum reconstruction bilaterally and several tube placements. History of surgery on arm Right arm surgery x4 after open fracture as a child. Family History Family History Father Family history of cardiovascular disease Hypertension CAD (coronary artery disease) Mother Hypertension Social History Social History (Updated 03/27/22 @ 16:36 by Kamron Combs MA) Social History: The patient lives in [place] with his parents. He does auto body repair. He designates his mother, Alexandrea, as his surrogate decision maker and he wishes to be a full code. He is a lifelong nonsmoker and denies alcohol and drug abuse. Smoking status: Never smoker Alcohol intake: never Substance use: never Lack of Transportation: No Lack of Food: Never True Current Housing: I Have Housing Concerned About Future Housing: No Difficulty Paying Gas/Electric Bills: No Difficulty Paying for Meds: No Currently Unemployed: No Education: Associate Degree Difficulty w/ Childcare or Family Care: No Living arrangements: with family Gender identity (if verbalized by the patient): Male Spiritual care concerns: No Agree to blood products: Yes Comments At time of signature, agree with nursing past medical, surgical, social and family history. There is no relevant family history pertinent to the presenting complaint Exam Narrative: GENERAL: Well-appearing, well-nourished, and in no acute distress. HEAD: Normocephalic, atraumatic. EYES: PERRLA, left sclera clear, and EOMI. No nystagmus. Right sclera and conjunctivae injected with watery drainage; superficial corneal abrasion noted upon Wood's lamp exam, see note. Upper and lower eyelid unremarkable, no periorbital edema noted ENT: Nares clear, turbinates pink, no rhinorrhea or epistaxis. Mucous membranes moist. TM pearly webb with sharp light reflex bilaterally; no tragal tenderness. NECK: Supple. CHEST: No respiratory distress. Speaks in full sentences. HEART: Regular rate and rhythm. SKIN: Warm, dry, no visible rash. NEURO: Alert and oriented x3. PSYCH: Normal mood and affect Course Course Emergency Course: Patient is aware of diagnosis, understands and agrees to treatment plan. Anticipatory guidance given. Patient agrees to follow-up as directed and i
[2022-09-02 08:42] VITALS: BP 140/90; PULSE 64; RESP 16; TEMP 36.6; O2SAT 99
== END 2022-09-02 09:09 | disposition home or self-care (01) ==
PROVIDERS: Emergency Provider Nurse Practitioner; PCP Internal Medicine
DX: S05.01XA Injury of conjunctiva and corneal abrasion without foreign body, right eye, initial encounter (principal); X58.XXXA Exposure to other specified factors, initial encounter
CPT/HCPCS: 99213; A9270; G0463

== ENCOUNTER 2023-09-09 18:23 | Emergency (ER) | payer OTHER, SELFPAY ==
--- NOTE | 2023-09-09 18:35 | ED.WOUNDLAC ---
HPI - Wound/Laceration General Chief Complaint: Wound/Laceration Stated Complaint: cut on letf hand Time Seen by Provider: 09/09/23 19:03 Source: patient and RN notes reviewed Mode of arrival: ambulatory Limitations: no limitations History of Present Illness HPI narrative: 28-year-old male presents with concern for cut on the palmar aspect of his left hand he sustained prior to arrival with a drill bit. He denies decreased sensation, strength, range of motion in the hand or digits. He is not up-to-date on this tetanus vaccination Related Data Home Medications Medication Instructions Recorded Confirmed No Home Medications 10/10/22 09/09/23 Allergies Allergy/AdvReac Type Severity Reaction Status Date / Time No Known Allergies Allergy Verified 06/05/23 11:21 Review of Systems Review of Systems: CONSTITUTIONAL: Denies malaise, chills, sweats, or fever. SKIN: Reports laceration to the left hand MUSCULOSKELETAL: Denies muscle skeletal pain NEUROLOGIC: Denies numbness, weakness All systems reviewed & are unremarkable except as noted in HPI and below PMFSH Past Medical History Medical History (Updated 09/09/23 @ 19:07 by Janna Gan NP) Duodenal ulcer with hemorrhage Headache Surgical History Surgical History History of ear surgery Multiple ear surgeries including eardrum reconstruction bilaterally and several tube placements. History of surgery on arm Right arm surgery x4 after open fracture as a child. Family History Family History Father Family history of cardiovascular disease Hypertension CAD (coronary artery disease) Mother Hypertension Social History Social History Social History: The patient lives in [place] with his parents. He does auto body repair. He designates his mother, Alexandrea, as his surrogate decision maker and he wishes to be a full code. He is a lifelong nonsmoker and denies alcohol and drug abuse. Smoking status: Never smoker Alcohol intake: never Substance use: never Lack of Transportation: No Lack of Food: Never True Current Housing: I Have Housing Concerned About Future Housing: No Difficulty Paying Gas/Electric Bills: No Difficulty Paying for Meds: No Currently Unemployed: No Education: Associate Degree Difficulty w/ Childcare or Family Care: No Living arrangements: with family Gender identity (if verbalized by the patient): Male Spiritual care concerns: No Agree to blood products: Yes Comments At time of signature, agree with nursing past medical, surgical, social and family history. There is no relevant family history pertinent to the presenting complaint Exam Narrative: GENERAL: Well-appearing, well-nourished, and in no acute distress. HEAD: Normocephalic EYES: PERRLA, conjunctivae clear NECK: Supple. CHEST: Speaks in full sentences. No respiratory distress. HEART: Regular rate and rhythm. Normal and equal peripheral pulses. EXTREMITIES: Left hand and digits of hand have normal strength and sensation. Range of motion normal. No clubbing, cyanosis, or edema noted. Normal digital cascade with flexion of fingers, median, ulnar and radial nerve intact. Normal sensation of each side of finger. Can perform 'okay' sign, 'cross over finger test of index and middle fingers' and 'thumbs up' sign. No scissoring. Normal thumb opposition. Good capillary refill and radial pulse. Distal capillary refill less than 3 seconds. SKIN: Warn, dry, intact, pink. 1 cm irregular laceration into the subcutaneous tissue noted to the palmar aspect of the left hand NEURO: Alert and oriented x3. PSYCH: Normal mood and affect Course Course Emergency Course: Patient is aware of diagnosis, understands and agrees to treatment plan. Anticipatory guidance given. Patient agrees to foll
[2023-09-09 18:44] VITALS: BP 142/93; PULSE 74; RESP 20; TEMP 36.7; O2SAT 98
[2023-09-09] MEDS: TETANUS,DIPHTHERIA,AC PERTUSSIS ADULT (0.5 ML) BOOSTRIX IM (19:17)
== END 2023-09-09 19:47 | disposition home or self-care (01) ==
PROVIDERS: Emergency Provider Nurse Practitioner; PCP Internal Medicine
DX: S61.412A Laceration without foreign body of left hand, initial encounter (principal); W29.8XXA Contact with other powered hand tools and household machinery, initial encounter; Z23 Encounter for immunization
CPT/HCPCS: 12001; 90471; 90715; 99212; G0463

== ENCOUNTER 2024-04-07 10:55 | Emergency (ER) | payer OTHER, SELFPAY ==
[2024-04-07 11:04] VITALS: BP 136/93; PULSE 80; RESP 18; TEMP 36.4; O2SAT 100
--- NOTE | 2024-04-07 11:19 | ED.URI ---
HPI - URI/Sore Throat General Chief Complaint: Upper Respiratory Infection Stated Complaint: sore throat/sinus pressure Time Seen by Provider: 04/07/24 11:25 Source: patient, RN notes reviewed and old records reviewed Mode of arrival: ambulatory Limitations: no limitations History of Present Illness HPI Narrative: Patient presents with complaints of sore throat, runny nose, sinus pain, sinus congestion, hoarse voice, decreased hearing. He does report some right ear discomfort. He denies any fever, chills, sweats. He denies any injury or trauma. He has been taking ibuprofen for his symptoms with moderate relief. He voices no other concerns or complaints at this time Related Data Allergies Allergy/AdvReac Type Severity Reaction Status Date / Time No Known Allergies Allergy Verified 04/07/24 11:05 Review of Systems Review of Systems: All systems reviewed & are unremarkable except as noted in HPI and below Constitutional: Constitutional: Reports no additional constitutional complaints ENT: Reports system reviewed and no additional complaints, except as documented, Reports change in voice, Reports otalgia, Reports hoarseness, Reports sinus pain, Reports sinus pressure and Reports sore throat Cardiovascular: Cardiovascular: Reports no additional cardiovascular complaints Respiratory: Respiratory: Reports no additional respiratory complaints and Reports cough Gastrointestinal: Gastrointestinal: Reports no additional gastrointestinal complaints PMFSH Past Medical History Medical History (Updated 04/07/24 @ 11:29 by Elba Lemus APRN) Headache Duodenal ulcer with hemorrhage Surgical History Surgical History History of surgery on arm Right arm surgery x4 after open fracture as a child. History of ear surgery Multiple ear surgeries including eardrum reconstruction bilaterally and several tube placements. Family History Family History Father Family history of cardiovascular disease Hypertension CAD (coronary artery disease) Mother Hypertension Social History Social History Social History: The patient lives in [place] with his parents. He does auto body repair. He designates his mother, Aleaxndrea, as his surrogate decision maker and he wishes to be a full code. He is a lifelong nonsmoker and denies alcohol and drug abuse. Smoking status: Never smoker Alcohol intake: never Substance use: never Lack of Transportation: No Lack of Food: Never True Current Housing: I Have Housing Concerned About Future Housing: No Difficulty Paying Gas/Electric Bills: No Difficulty Paying for Meds: No Currently Unemployed: No Education: Associate Degree Difficulty w/ Childcare or Family Care: No Living arrangements: with family Gender identity (if verbalized by the patient): Male Spiritual care concerns: No Agree to blood products: Yes Comments At the time of my signature, I reviewed and agree with the nursing past medical, surgical, social, and family history. There is no relevant family history pertinent to the patient complaint. Exam Const: General: cooperative, no acute distress, alert and awake Orientation/consciousness: oriented to person, oriented to place and oriented to time HENMT: Head: normal to inspection Ears: TM abnormal dull bilateral, erythematous on the right and with loss of landmarks on the right Resp: Effort & Inspection: normal respiratory effort and able to speak in complete sentences Auscultation: clear to auscultation bilaterally, no crackles, no rales, no rhonchi and no wheezes Cardio: Palpation: normal PMI Rate: regular rate Rhythm: regular rhythm Heart sounds: S1 normal heart sound present and S2 normal heart sound present Neuro: General: oriented to person, oriented to place and oriented to time Cranial nerves: Yes CN's II-XII intact bilaterally Psych: Appearance: grossly normal Thought process: Normal thought process present Insight: Good insight present (Psych) Judgement: Good judgement present (Psych) Course Course Level of Care: Express Care Visit Vital Signs Vital signs: Vital Signs Temperature 97.6 F 04/07/24 11:04 Pulse Rate 80 04/07/24 11:04 Respiratory Rate 18 04/07/24 11:04 Blood Pressure 136/93 H 04/07/24 11:04 Pulse Oximetry 100 04/07/24 11:04 Oxygen Delivery Room Air 04/07/24 11:04 Temperature 97.6 F 04/07/24 11:04 Pulse Rate 80 04/07/24 11:04 Respiratory Rate 18 04/07/24 11:04 Blood Pressure 136/93 H 04/07/24 11:04 Pulse Oximetry 100 04/07/24 11:04 Oxygen Delivery Room Air 04/07/24 11:04 Reviewed MDM - URI/Sore Throat MDM Narrative Medical decision making narrative: Negative rapid strep, culture pending. History and exam consistent with otitis media. Treat as such. Patient nontoxic appearing, stable for discharge home on p.o. antibiotic therapy. Discharge instructions reviewed with patient, as well as provided in writing per nursing staff. The instructions also include specific and strict return/GO TO THE ER as well as f/u information. All questions have been answered, and the patient deny any further questions with discharge and discharge plan. Some parts of this dictation were generated by voice recognition software and may contain typographical and/or grammatical inaccuracies. Differential Diagnosis Differential diagnosis: Likely upper respiratory infection, otitis media, viral infection, bronchitis, influenza and pharyngitis Medical Records Attestation: I reviewed the patient's medical records. Lab Data Attestation: I reviewed the patient's lab results. Discharge Plan Discharge Clinical Impression: Otitis media Qualifiers: Otitis media type: suppurative Chronicity: acute Laterality: right Recurrence: not specified as recurrent Spontaneous tympanic membrane rupture: without spontaneous rupture Qualified Code(s): H66.001 - Acute suppurative otitis media without spontaneous rupture of ear drum, right ear Patient Disposition: Home, Self-Care Condition: Stable Instructions: Antibiotic Form, Earache (ED) Patient Language: Somali Prescriptions: New amoxicillin 875 mg tablet 875 mg PO Q12H Qty: 20 0RF prednisone 50 mg tablet 50 mg PO DAILY Qty: 5 0RF No Action atomoxetine [Strattera] 40 mg capsule 40 mg PO DAILY Qty: 30 2RF Claritin-D 12 Hour 5-120 mg tablet extended release 12 hr 1 tablet PO Q12H PRN (Reason: sinus symptoms) Qty: 14 0RF Follow-up/Referrals: Humberto Sneed DO [Primary Care Provider] - Stand Alone Forms: Work/School Release IP Time of Disposition: 11:30
[2024-04-07 11:25] LABS: EDSTREPNEGPOS1 Negative (Negative)
== END 2024-04-07 11:35 | disposition home or self-care (01) ==
PROVIDERS: Emergency Provider Nurse Practitioner Family; PCP Internal Medicine
DX: H66.001 Acute suppurative otitis media without spontaneous rupture of ear drum, right ear (principal)
CPT/HCPCS: 87081; 87880; 99213; G0463